=== PATIENT | male | born 1960 | race Caucasian/White ===

== ENCOUNTER → 2018-07-19 08:09 | Outpatient (CLI) | payer OTHER ==
[~2018-07-19] VITALS: Ht 182.9 cm; Wt 75.0 kg
--- NOTE | ~2018-07-19 | HEMODYNAMI ---
PATIENT:LOREN HOGUE MEDICAL RECORD: [id number] : 64 LOCATION:[facility] ADMISSION DATE: 07/19/18 Generatedon:07/19/201810:44 Patient name: LOREN HOGUE Patient #: [id number] SSN: : 1960 Date of study: 07/19/2018 Page: Of Hemodynamic Procedure Report Patient Data Patient Demographics Procedure consent was obtained First Name: LOREN Gender: Male Last Name: LENNIE : 1960 Patient #: [id number] Age: 57 year(s) Race: Unknown Additional ID: [id number] Contact details Address: [address] [place] [address] State: [place] City: [place] Zip code: [address] Past Medical History Allergies: No known allergies Admission Admission Data Admission Date: 07/19/2018 Admission Time: 8:09 Height (in.): 6 BSA: 0.32 (m2) Height (cm.): 15.24 BMI: 3241.93 (kg/m2) Weight (lbs.): 166 Weight (kg.): 75.3 Lab Results Lab Result Date: 07/19/2018 Lab Result Time: 0:00 Biochemistry Name Units Result Min Max BUN mg/dl 10 --(-*--)-- 7 18 Creatinine mg/dl 0.9 --(-*--)-- 0.6 1.3 CBC Name Units Result Min Max Hemoglobin g/dl 13 -*(----)-- 13.5 17.5 Procedure Procedure Types Cath Procedure Diagnostic Procedure LHC LHC w/Coronaries FFR/IVUS Intra-Coronary IVUS Initial Sedation Charges Moderate Sedation up to 15 minutes PCI Procedure Coronary Stent Coronary Stent Initial Procedure Description Procedure Date Procedure Date: 07/19/2018 Procedure Start Time: 10:21 Procedure End Time: 10:36 Procedure Staff Name Function Suri Elizondo RT Scrub Torsten Oglesby MD Performing Physician Jakob Mueller RT Housekeeping Attendant Samuel Morrison RN Nurse Amada Bravo RT Monitor Procedure Data Cath Procedure Fluoroscopy Diagnostic fluoroscopy Total fluoroscopy Time: 3.6 time: 3.6 min min Diagnostic fluoroscopy Total fluoroscopy dose: 335 dose: 335 mGy mGy Contrast Material Contrast Material Type Amount (ml) Isovue 300 102 Entry Location Entry Primary Successful Side Size Upsize Upsize Entry Closure Succes sful Closure Location (Fr) 1 (Fr) 2 (Fr) Remarks Device Remarks Femoral Right 5 Fr 6 Fr Exoseal artery Short Estimated blood loss: 10 ml Diagnostic catheters Device Type Used For End Catheter Placement MULTIPACK Pigtail 5 Fr Procedure catheter MULTIPACK JL 4.0 5Fr Procedure catheter MULTIPACK 3DRC 5Fr Procedure catheter Procedure Complications No complications Procedure Medications Medication Administration Route Dosage 0.9% NaCl I.V. 100 ml/hr Oxygen etCO2 Nasal cannula 2 l/min Heparin Flush Bag added to field 2 bags (1000units/500ml NS) Lidocaine 2% added to field 20 Benadryl I.V. 50 mg Versed I.V. 2 mg Fentanyl I.V. 100 mcg Versed I.V. 1 mg Versed I.V. 1 mg Heparin Bolus I.V. 4000 units Integrilin (Bolus I.V. 6.8 ml 2mg/ml) Integrilin (Bolus wasted 3.2 ml 2mg/ml) Plavix P.O. 600 mg Hemodynamics Rest BSA: 0.32 (m2) HGB: 13 (g/dl) O2 Consumption: Estimated: 39.33 (ml/min) O2 Consu mption indexed: Estimated:122.91 (ml/min/m) Heart Rate: 82 (bpm) Snapshots Pre Cath Intra NCS Post Cath Vital Signs Time Heart Resp SPO2 etCO2 NIBP (mmHg) Rhythm Pain Sedation Rate (ipm) (%) (mmHg) Status Level (bpm) 10:10:08 81 22 97 0 176/100(138) NSR 0 (11) 10(A) , No pain 10:14:57 77 14 99 34.5 160/97(139) NSR 0 (11) 10(A) , No pain 10:19:43 76 18 98 38.3 168/98(128) NSR 0 (11) 10(A) , No pain 10:24:32 82 14 33 173/90(137) NSR 0 (11) 10(A) , No pain 10:29:19 82 21 97 35.3 169/93(134) NSR 0 (11) 9(A) , No pain 10:34:06 83 16 97 15 164/99(139) NSR 0 (11) 10(A) , No pain Medications Time Medication Route Dose Verified Delivered Reason Notes Effectiveness by by 10:12:13 0.9% NaCl I.V. 100 Samuel Samuel Per physician ml/hr Prince Morrison RN RN 10:12:23 Oxygen etCO2 2 Samuel Samuel Per physician Nasal l/min Prince Morrison cannula RN RN 10:12:33 Heparin Flush added 2 Samuel Samuel used for Bag to bags Prince Morrison procedure (1000units/500ml field RN RN NS) 10:12:43 Lidocaine 2% added 20ml Samuel Samuel for local to vial Prince Morrison anesthetic RN RN 10:13:07 Benadryl I.V. 50 mg Samuel Samuel Per physician Prince Morrison RN RN 10:15:33 Versed I.V. 2 mg Samuel Samuel for sedation Prince Morrison RN RN 10:15:41 Fentanyl I.V. 100 Samuel Samuel for sedation mcg Prince Morrison RN RN 10:20:04 Versed I.V. 1 mg Samuel Samuel for sedation Prince Morrison RN RN 10:22:05 Versed I.V. 1 mg Samuel Samuel for sedation Prince Morrison RN RN 10:31:02 Heparin Bolus I.V. 4000 Samuel Samuel for units Prince Morrison anticoagulation RN RN 10:31:37 Integrilin I.V. 6.8 Samuel Samuel for (Bolus 2mg/ml) ml Prince Morrison antiplatelet RN RN therapy 10:33:49 Integrilin wasted 3.2 Samuel Samuel to sharp's (Bolus 2mg/ml) ml Prince Morrison RN RN 10:35:30 Plavix P.O. 600 Samuel Samuel for mg Prince Morrison antiplatelet RN RN therapy Procedure Log Time Note 9:57:32 Jakob MIGUEL(R) sent for patient. Start room use. 9:57:33 Time tracking: Regular hours (M-F 7:00 - 5:00) 9:57:37 Plan of Care:Hemodynamics will remain stable., Cardiac rhythm will remain stable., Comfort level will be maintained., Respiratory function will remain adequate., Patient/ family verbilizes understanding of procedure., Procedure tolerated without complication., Recovers from procedure without complications.. 9:59:52 Signed procedure consent form obtained from patient. 10:00:16 H&P Date Dictated: 06/22/2018 Within 30 days and on chart., H&P Addendum completed by physician on day of procedure. (MUST COMPLETE FOR ALL OUTPATIENTS). 10:00:22 Patient allergic to No known allergies 10:00:26 Patient Height : 6 inches 10:00:32 Patient Weight : 166 lbs 10::59 Lab Result : Hemoglobin 13 g/dl 10::59 Lab Result : Creatinine 0.9 mg/dl 10::59 Lab Result : BUN 10 mg/dl 10:03:33 Patient received from Pre/Post Procedure Room to CCL 1 Alert and oriented. Tansferred to table in Supine position. 10:03:36 Warm blankets applied, and radha hugger turned on for patient comfort. 10:03:37 Correct patient and procedure confirmed by team. 10:03:38 ECG and BP/O2 sat monitors applied to patient. 10:09:09 Vital chart was started 10:09:12 Full Disclosure recording started 10:12:13 0.9% NaCl 100 ml/hr I.V. was administered by Samuel Morrison RN; Per physician; 10:12:23 Oxygen 2 l/min etCO2 Nasal cannula was administered by Samuel Morrison RN; Per physician; 10:12:33 Heparin Flush Bag (1000units/500ml NS) 2 bags added to field was administered by Samuel Morrison RN; used for procedure; 10:12:43 Lidocaine 2% 20ml vial added to field was administered by Samuel Morrison RN; for local anesthetic; 10:13:07 Benadryl 50 mg I.V. was administered by Samuel Morrison RN; Per physician; 10:14:19 Baseline sample Acquired. 10:14:23 Rhythm: sinus rhythm 10:14:26 Pre-procedure instructions explained to patient. 10:14:27 Pre-op teaching completed and patient verbalized understanding. 10:14:29 Family in patients room. 10:14:31 Patient NPO since Midnight. 10:14:32 Is the patient allergic to Iodine/contrast media? No. 10:14:34 Is patient on blood thinner?No 10:14:35 Patient diabetic? No. 10:14:38 Previous problem with sedation/anesthesia? No ? 10:14:39 Snore? Yes 10:14:40 Sleep apnea? No 10:14:42 Opens mouth fully? Yes 10:14:43 Deviated septum? No 10:14:44 Sticks out tongue? Yes 10:14:54 Airway obstruction? Yes ASTHMA A KID 10:14:57 Dentures? No ? 10:14:59 Pre procedure: right dorsailis pedis pulse 2+ Normal; easily identifiable; not easily obliterated 10:15:03 Patient pain scale 0/10 ?. 10:15:06 IV patent on arrival in left hand with 0.9% NaCl at [facility]. 10:15:10 Lab results completed and on chart. 10:15:12 Right groin area was prepped with chlora-prep and draped in sterile fashion 10:15:13 Sharps counted by scrub and verified by R.N. 10:15:13 Alarms reviewed by R. N. 10:15:16 --------ALL STOP TIME OUT------ 10:15:17 Final Timeout: patient, procedure, and site verified with staff and physician. All members of the team are in agreement. 10:15:18 Right groin site verified by team. 10:15:23 Physical assessment completed. ASA score P 2 - A patient with mild systemic disease as per Torsten Oglesby MD. 10:15:26 Sedation plan: IV Moderate Sedation Medication:Versed, Fentanyl 10:15:33 Versed 2 mg I.V. was administered by Samuel Morrison RN; for sedation; 10:15:41 Fentanyl 100 mcg I.V. was administered by Samuel Morrison RN; for sedation; 10:16:11 Use device set Femoral Dx 10:16:12 ACIST Syringe (54970) opened to sterile field. 10:16:13 Bag Decanter () opened to sterile field. 10:16:14 ACIST Hand Control (16936) opened to sterile field. 10:16:15 ACIST Manifold (20878) opened to sterile field. 10:16:16 Medline Cath Pack ([id number]) opened to sterile field. 10:16:16 Tegaderm 4 x 4 (1626W) opened to sterile field. 10:16:17 DIAGNOSTIC WIRE .035 260cm J wire (794854) opened to sterile field. 10:16:18 DIAGNOSTIC Multipack 5Fr catheter set (FL2167) opened to sterile field. 10:16:19 SHEATH Prelude 5Fr 0.035 (XDQ-2T-67-035) opened to sterile field. 10:19:01 Zero performed for pressure channel P1 10:20:04 Versed 1 mg I.V. was administered by Samuel Morrison RN; for sedation; 10:20:16 Zero performed for pressure channel P1 10:21:37 Procedure started. 10:21:43 Local anesthetic to right femoral artery with Lidocaine 2% by Torsten Oglesby MD.INITIAL ACCESS ONLY 10:22:05 Versed 1 mg I.V. was administered by Samuel Morrison RN; for sedation; 10:22:26 A 5 Fr sheath was inserted into the Right Femoral artery 10::43 A MULTIPACK Pigtail 5 Fr catheter was advanced over the wire and used for Procedure. 10:23:24 LV gram done using LOW 10:23:27 Injector settings: Ml/sec: 10, Volume: 20, 10:23:31 EF : 60 % 10:23:32 Catheter removed. 10:24:05 A MULTIPACK JL 4.0 5Fr catheter was advanced over the wire and used for Procedure. 10:24:36 LCA angiography performed. 10:24:58 Catheter removed. 10:25:04 A MULTIPACK 3DRC 5Fr catheter was advanced over the wire and used for Procedure. 10:25:55 RCA angiography performed. 10:26:01 Catheter removed. 10:26:06 SHEATH 6FR [place] (PVX214) opened to sterile field. 10:26:14 INFLATOR Merit BasixCompak (ZM4243) opened to sterile field. 10:26:26 CHOICE PT Extra Support 182cm wire ([id number]) opened to sterile field. 10:26:55 Sheath upsized to a 6 Fr Short. 10:27:34 GUIDE 6FR XBLAD 3.5 catheter ([id number]) opened to sterile field. 10:27:44 6 Fr XBLAD 3.5 guide catheter was inserted over the wire 10:28:14 CHOICE ES 182 wire advanced. 10:28:40 Tiger [place] IVUS Catheter (88885L) opened to sterile field. 10:28:49 Wire advanced across lesion. 10:29:30 IVUS catheter advanced over wire. 10:29:32 IVUS pass to LAD lesion performed. 10:30:07 IVUS catheter removed over wire. 10:31:02 Heparin Bolus 4000 units I.V. was administered by Samuel Morrison RN; for anticoagulation; 10:31:37 Integrilin (Bolus 2mg/ml) 6.8 ml I.V. was administered by Samuel Morrison RN; for antiplatelet therapy; 10:31:53 Place stent Inflation Number: 1 A INTEGRITY RX 3.5 x 26 stent ([id number]) was prepped and advanced across the Mid LAD. The stent was deployed at 15 ADAM for 0:10 (min:sec). 10:32:44 Stent catheter was removed intact over wire. 10:32:45 Wire removed. 10:32:46 Guide catheter removed. 10:32:52 EXOSEAL 6Fr (EX600) opened to sterile field. 10:33:01 Sheath removed intact; hemostasis achieved with Exoseal to the Right Femoral artery. 10:33:05 Procedure ended.(Physican Out) 10:33:24 Fluoroscopy time 03.60 minutes. 10:33:28 Fluoroscopy dose: 335 mGy 10:33:28 Flurop Dose total: 335 10:33:32 Contrast amount:Isovue 300 102ml. 10:33:33 Sharps counted by scrub and verified by R.N. 10:33:35 Post-op/insertion site Right Femoral artery dressed using a 4 x 4 and Tegaderm. 10:33:43 Post right femoral artery:stable, soft, clean and dry 10:33:49 Integrilin (Bolus 2mg/ml) 3.2 ml wasted was administered by Samuel Morrison RN; to sharp's; 10:34:46 Post-procedure physical assessment completed. ASA score P 2 - A patient with mild systemic disease as per Torsten Oglesby MD. 10:34:50 Post procedure rhythm: sinus rhythm 10:34:51 Estimated blood loss: 10 ml 10:34:53 Patient needs reinforcement of post procedure teaching. 10:34:53 Post procedure instruction explained to patient.Patient verbalizes understanding. 10:35:30 Plavix 600 mg P.O. was administered by Samuel Morrison RN; for antiplatelet therapy; 10:35:52 Procedure type changed to Cath procedure, Diagnostic procedure, LHC, C w/Coronaries, FFR/IVUS, Intra-Coronary IVUS Initial, Sedation Charges, Moderate Sedation up to 15 minutes, PCI procedure, Coronary Stent, Coronary Stent Initial 10:36:18 Procedure and supply charges have been captured, reviewed, submitted and are correct. 10:36:21 Procedure Complication : No complications 10:36:40 Vital chart was stopped 10:36:41 See physician's report for complete and final results. 10:36:42 Report given to Pre/Post Procedure Room. 10:36:46 Patient transfered to Pre/Post Procedure Room with Bed. 10:36:48 Full Disclosure recording stopped 10:36:48 Procedure ended. 10:36:50 End room use (Document Last) 10:43:00 FEMSTOP Gold ([id number]) opened to sterile field. 10:43:27 Femstop placed over the right femoral artery at 190 mmHg. Hemostasis achieved. Intervention Summary Intervention Notes Time ActionType Lesion and Equipment Action# Pressure Duration Attributes Used 10:31:53 Place stent Mid LAD INTEGRITY RX 1 15 00:10 3.5 x 26 stent ([id number]) Device Usage Item Name Manufacture Quantity Catalog Number Hospital Part Current M inimal Lot# / Charge Number Stock Stock Serial# Code ACIST Syringe Acist 1 80056 912060 250807 895156 2 0 (77979) [employer] Inc Bag Decanter Microtek 1 2001S 016577 76131 441751 5 () Medical Inc. ACIST Hand Acist 1 95161 109406 653662 202322 5 Control (72200) [employer] Inc ACIST Manifold Acist 1 42183 775607 165692 613695 5 (84253) Medical [employer] Inc Tegaderm 4 x 4 3M 1 1626W 911357 912400 090782 5 (1626W) Medline Cath Cardinal 1 [id number] 880596 43811 107926 5 Rollerwall [facility] ([id number]) DIAGNOSTIC WIRE St Tim 1 101084 695055 152290 467505 3 0 .035 260cm J wire (505590) DIAGNOSTIC Cardinal 1 CP2842 910671 81888 383987 3 0 Multipack 5Fr Health catheter set (JX7499) SHEATH Prelude Merit 1 [id number]-9F-46-035 237840 694676 979490 5 5Fr 0.035 Medical ([id number]-4S-02-035) MULTIPACK Cardinal 1 015698 5 Pigtail 5 Fr Health catheter MULTIPACK JL Cardinal 1 396065 5 4.0 5Fr Health catheter MULTIPACK 3DRC Cardinal 1 526410 5 5Fr catheter Health SHEATH 6FR Terumo 1 CMC196 750353 559199 257100 4 0 [place] (UQR543) INFLATOR Merit Merit 1 KK7726 303906 623851 323890 1 5 BasixRADEUM Medical (SZ3164) CHOICE PT Extra [place] 1 [id number] 549709 805914 931479 5 Support 182cm Scientific wire ([id number]) GUIDE 6FR XBLAD Cardinal 1 [id number] 382170 407089 047546 1 0 3.5 catheter Health (91659844) Tiger Tiger 1 20471J 713792 278939 868094 8 [place] IVUS Catheter (40796B) INTEGRITY RX Medtronic 1 [id number] 637172 252246 416115 5 [id number] 3.5 x 26 stent ([id number]) EXOSEAL 6Fr Cardinal 1 EX600 158121 913881 072550 1 0 (EX600) Health FEMSTOP Gold St Tim 1 K71681 901942 986846 943676 5 ([id number]) Signature Audit [place] Stage Time Signature Unsigned Intra-Procedure 07/19/2018 Amada Bravo 10:39:47 AM RT(R) RT(R) 07/19/2018 10:42:52 AM Intra-Procedure 07/19/2018 Amada Bravo 10:44:01 AM RT(R) Signatures Monitor : Amada Bravo Signature : RT Date : Time : [id number] [place] [address]
--- NOTE | ~2018-07-19 | OP ---
PATIENT NAME: LOREN HOGUE MEDICAL RECORD: [id number] :64 LOCATION:[facility] ADMISSION DATE: SURGEON: DWIGHT KAUFMAN MD DATE OF OPERATION: 07/19/2018 DATE OF SERVICE: 07/19/2018 PROCEDURES: 1. PTCA stent LAD. 2. Left heart catheterization. 3. Selective coronary angiography. 4. Left ventriculogram. 5. Intravascular ultrasound. INDICATION: Angina and coronary artery disease. PROCEDURE IN DETAIL: After informed consent was obtained and after a detailed description of the risks, benefits as well as alternative therapies, the patient elected to proceed with angiogram and angioplasty. The right femoral area was prepped and draped in normal sterile fashion. Right femoral artery was cannulated via modified Seldinger technique with placement of 6-Japanese sheath. All catheters exchanged through this sheath. FINDINGS: The left ventriculogram was performed in a standard 30-degree LOW view, reveals good cardiac wall motion throughout all segments. Overall ejection fraction estimated 60%. SELECTIVE CORONARY ANGIOGRAPHY: 1. Left main is with no significant angiographic disease. 2. Left anterior descending has areas of 70% greater stenosis throughout the proximal vessel confirmed by intravascular ultrasound. 3. Left circumflex has mild irregularities, but no flow-limiting stenosis. 4. Right coronary has mild irregularities, but no flow-limiting stenosis. PTCA STENT OF THE LAD: The stent used was a 3.5 x 26 mm Integrity. Result was 0% residual stenosis. OVERALL IMPRESSION: Successful percutaneous transluminal coronary angioplasty stent of the left anterior descending going from greater than 70% initial stenosis to 0% residual. TRANSINT:[id number] Voice Confirmation ID: [id number] DOCUMENT ID: [id number] DWIGHT KAUFMAN MD at 1722 CC: [id number] DICTATION DATE: 07/19/18 1037 OVERHEAD FOREMAN: 07/19/18 1049 [address] [place] [address]
[~2018-07-19 08:09] MED LIST: BAYER CHEWABLE81 MG PO; LEVOXYL200 MCG PO; PLAVIX75 MG PO
[2018-07-19 09:17] VITALS: BP 164/91; Ht 182.9 cm; Wt 75.0 kg
[2018-07-19 09:26] LABS: BASOPHILS 0.3 % (0-2); EOSINOPHILS 2.9 % (0-7); HEMATOCRIT 38.7 % (42.0-54.0); IMMATURE GRANULOCYTES 0.4 % (0-5); LYMPHOCYTES 19.7 % (15-50); MCH 29.5 pg (26.0-34.0); MCHC 33.6 g/dL (31.0-37.0); MEAN PLATELET VOLUME 8.8 fL (7.4-10.4); MONOCYTES 7.3 % (2-11); NEUTROPHILS 69.4 % (40-80); PLATELET COUNT 205 10x3/uL (130-400); RDW 14.1 % (11.5-14.5); WBC 7.8 10x3/uL (4.8-10.8)
[2018-07-19 09:41] LABS: CALC OSMOLALITY 275 mosm/kg (275-300); CALCIUM 8.3 mg/dL (8.5-10.1); CHLORIDE - SERUM 104 mmol/L (98-107); CREATININE - SERUM 0.9 mg/dL (0.6-1.3); GLUCOSE 111 mg/dL (74-106); POTASSIUM - SERUM 3.9 mmol/L (3.5-5.1); SODIUM 138 mmol/L (136-145); UREA NITROGEN 10 mg/dL (7-18); eGFR NON AFRICAN AMERICAN > 90 mL/min (90-120)
== END | disposition home or self-care (01) ==
LOC: D.CATH 08:09
PROVIDERS: Internal Medicine Interventional Cardiology
DX: I25.119 Atherosclerotic heart disease of native coronary artery with unspecified angina pectoris (principal); Z01.812 Encounter for preprocedural laboratory examination

== ENCOUNTER 2018-08-30 07:48 | Outpatient (CLI) | payer OTHER ==
[~2018-08-30] VITALS: Ht 182.9 cm; Wt 75.0 kg
--- NOTE | ~2018-08-30 | HEMODYNAMI ---
PATIENT:LOREN HOGUE MEDICAL RECORD: [id number] : 64 LOCATION:[facility] ADMISSION DATE: 08/30/18 Generatedon:08/30/201810:19 Patient name: LOREN HOGUE Patient #: [id number] SSN: : 1960 Date of study: 08/30/2018 Page: Of Hemodynamic Procedure Report Patient Data Patient Demographics Procedure consent was obtained First Name: LOREN Gender: Male Last Name: LENNIE : 1960 Patient #: [id number] Age: 57 year(s) Race: Unknown Additional ID: [id number] Contact details [address]: [address] [place] [address] State: [place] City: [place] Zip code: [address] Past Medical History Allergies: No known allergies Admission Admission Data Admission Date: 08/30/2018 Admission Time: 7:48 Procedure Procedure Types Cath Procedure Diagnostic Procedure LHC LHC w/Coronaries FFR/IVUS Intra-Coronary IVUS Initial Sedation Charges Moderate Sedation up to 30 minutes PCI Procedure Coronary Stent Coronary Stent Initial x2 Procedure Description Procedure Date Procedure Date: 08/30/2018 Procedure Start Time: 9:37 Procedure End Time: 10:12 Procedure Staff Name Function Torsten Oglesby MD Performing Physician Amada Bravo RT Scrub Estella Pham RN Nurse Kya Leung RN Veterinary Assistant Technician Jakob Mueller RT Monitor Procedure Data Cath Procedure Fluoroscopy Diagnostic fluoroscopy Total fluoroscopy Time: time: 12.5 min 12.5 min Diagnostic fluoroscopy Total fluoroscopy dose: 860 dose: 860 mGy mGy Contrast Material Contrast Material Type Amount (ml) Isovue 300 161 Entry Location Entry Primary Successful Side Size Upsize Upsize Entry Closure Succes sful Closure Location (Fr) 1 (Fr) 2 (Fr) Remarks Device Remarks Femoral Right 5 Fr 6 Fr Exoseal artery Short Estimated blood loss: 10 ml Diagnostic catheters Device Type Used For End Catheter Placement MULTIPACK Pigtail 5 Fr Procedure catheter MULTIPACK JL 4.0 5Fr Procedure catheter MULTIPACK 3DRC 5Fr Procedure catheter Procedure Complications No complications Procedure Medications Medication Administration Route Dosage 0.9% NaCl I.V. 100 ml/hr Oxygen etCO2 Nasal cannula 2 l/min Lidocaine 2% added to field 20 Heparin Flush Bag added to field 2 bags (1000units/500ml NS) Plavix P.O. 75 mg Versed I.V. 2 mg Fentanyl I.V. 100 mcg Versed I.V. 2 mg Fentanyl I.V. 100 mcg Versed I.V. 1 mg Heparin Bolus I.V. 4000 units Versed I.V. 1 mg Versed I.V. 2 mg Fentanyl I.V. 100 mcg Heparin Bolus I.V. 3000 units Lopressor I.V. 5 mg Nitro Viroqua S.L. 1200 mcg Hemodynamics Rest Heart Rate: 77 (bpm) Pressure Samples Time Site Value (mmHg) Purpose Heart Use Rate(bpm) 9:38 LV 140/18,40 Snapshot 80 Snapshots Pre Cath Intra NCS Post Cath Vital Signs Time Heart Resp SPO2 etCO2 NIBP (mmHg) Rhythm Pain Sedation Rate (ipm) (%) (mmHg) Status Level (bpm) 9:13:55 69 16 99 29.9 184/97(145) NSR 0 (11) 10(A) , No pain 9:18:17 68 15 100 31.4 172/96(122) NSR 0 (11) 10(A) , No pain 9:22:33 82 12 99 34.4 155/92(131) NSR 0 (11) 10(A) , No pain 9:26:55 73 11 98 35.9 149/85(138) NSR 0 (11) 10(A) , No pain 9:31:09 72 10 98 37.4 154/93(120) NSR 0 (11) 10(A) , No pain 9:35:25 72 10 98 34.4 159/95(145) NSR 0 (11) 10(A) , No pain 9:39:41 81 11 99 31.4 154/88(112) NSR 0 (11) 10(A) , No pain 9:43:55 82 11 99 38.1 156/95(114) NSR 0 (11) 10(A) , No pain 9:48:01 86 20 99 40.4 145/95(126) NSR 0 (11) 10(A) , No pain 9:53:19 89 13 98 30.6 192/113(152) NSR 0 (11) 10(A) , No pain 9:57:39 89 13 99 14.2 204/116(159) NSR 0 (11) 10(A) , No pain 10:02:17 95 23 97 38.9 198/118(155) NSR 0 (11) 10(A) , No pain 10:07:47 90 12 98 40.4 184/109(147) NSR 0 (11) 10(A) , No pain 10:12:03 79 13 97 38.1 154/92(132) NSR 0 (11) 10(A) , No pain Medications Time Medication Route Dose Verified Delivered Reason Notes Effectiveness by by 9:09:32 0.9% NaCl I.V. 100 Torsten Estella used for ml/hr Mendel Pham job tracer 9:09:39 Oxygen etCO2 2 Torsten Estella used for Nasal l/min Mendel Pham procedure cannula RN 9:09:46 Lidocaine 2% added 20ml Torsten Torsten for local to vial Mendel Oglesby MD anesthetic field 9:09:51 Heparin Flush added 2 Torsten Torsten used for Bag to bags Mendel Oglesby MD procedure (1000units/500ml field NS) 9:27:36 Plavix P.O. 75 mg Torsten Torsten for Mendel Oglesby MD antiplatelet therapy 9:33:08 Versed I.V. 2 mg Torsten Estella for sedation Mendel Pham RN 9:33:16 Fentanyl I.V. 100 Torsten Estella for sedation mcg Mendel Pham RN 9:40:50 Versed I.V. 2 mg Torsten Estella for sedation Mendel Pham RN 9:41:06 Fentanyl I.V. 100 Torsten Estella for sedation mcg Mendel Pham RN 9:45:46 Versed I.V. 1 mg Torsten Estella for sedation Mendel Pham RN 9:48:49 Heparin Bolus I.V. 4000 Torsten Estella for units Mendel oden RN 9:53:05 Versed I.V. 1 mg Torsten Estella for sedation Mendel Pham RN 10:00:32 Fentanyl I.V. 100 Torsten Estella for sedation mcg Mendel Pham RN 10:00:41 Heparin Bolus I.V. 3000 Torsten Soria for units Mendel Pham anticoagulation RN 10:02:27 Versed I.V. 2 mg Torsten Soria for sedation Mendel Pham RN 10:05:00 Lopressor I.V. 5 mg Torsten Soria Per physician Mendel Pham RN 10:10:14 Nitro Viroqua S.L. 1200 Torsten Soria Per physician [facility] Mendel Pham RN Procedure Log Time Note 9:05:52 Kya Leung RN sent for patient. Start room use. 9:05:53 Time tracking: Regular hours (M-F 7:00 - 5:00) 9:05:57 Plan of Care:Hemodynamics will remain stable., Cardiac rhythm will remain stable., Comfort level will be maintained., Respiratory function will remain adequate., Patient/ family verbilizes understanding of procedure., Procedure tolerated without complication., Recovers from procedure without complications.. 9:06:04 H&P Date Dictated: 08/28/2018 Within 30 days and on chart., H&P Addendum completed by physician on day of procedure. (MUST COMPLETE FOR ALL OUTPATIENTS). 9:06:11 Patient allergic to No known allergies 9:08:23 Patient received from Pre/Post Procedure Room to CCL 1 Alert and oriented. Tansferred to table in Supine position. 9:08:24 Warm blankets applied, and radha hugger turned on for patient comfort. 9:08:25 Correct patient and procedure confirmed by team. 9:08:26 Signed procedure consent form obtained from patient. 9:08:27 ECG and BP/O2 sat monitors applied to patient. 9:08:27 Full Disclosure recording started 9:09:32 0.9% NaCl 100 ml/hr I.V. was administered by Estella Pham RN; used for procedure; 9:09:39 Oxygen 2 l/min etCO2 Nasal cannula was administered by Estella Pham RN; used for procedure; 9:09:46 Lidocaine 2% 20ml vial added to field was administered by Torsten Oglesby MD; for local anesthetic; 9:09:51 Heparin Flush Bag (1000units/500ml NS) 2 bags added to field was administered by Torsten Oglesby MD; used for procedure; 9:12:39 Vital chart was started 9:17:40 Rhythm: sinus rhythm 9:17:44 Pre-procedure instructions explained to patient. 9:17:44 Pre-op teaching completed and patient verbalized understanding. 9:17:46 Family in patients room. 9:17:48 Patient NPO since Midnight. 9:17:50 Is the patient allergic to Iodine/contrast media? No. 9:17:53 Is patient on blood thinner?Yes 9:17:57 ACC The patient was administered the following blood thiners within the last 24 hours: ACCAspirin, ACCPlavix 9:17:59 Patient diabetic? No. 9:18:03 Previous problem with sedation/anesthesia? No ? 9:18:04 Snore? Yes 9:18:05 Sleep apnea? No 9:18:06 Deviated septum? No 9:18:07 Opens mouth fully? Yes 9:18:08 Sticks out tongue? Yes 9:18:12 Airway obstruction? Yes Asthma 9:18:15 Dentures? No ? 9:18:19 Pre procedure: right dorsailis pedis pulse 2+ Normal; easily identifiable; not easily obliterated 9:18:21 Patient pain scale 0/10 ?. 9:18:27 IV patent on arrival in left hand with 0.9% NaCl at O. 9:18:29 Lab results completed and on chart. 9:18:35 Right groin area was prepped with chlora-prep and draped in sterile fashion 9:18:36 Alarms reviewed by R. N. 9:18:36 Sharps counted by scrub and verified by R.N. 9:19:00 Use device set Femoral Dx 9:19:01 ACIST Syringe (46464) opened to sterile field. 9:19:02 Bag Decanter (2002) opened to sterile field. 9:19:02 Medline Cath Pack ([id number]) opened to sterile field. 9:19:03 DIAGNOSTIC WIRE .035 260cm J wire (093203) opened to sterile field. 9:19:04 ACIST Hand Control (75058) opened to sterile field. 9:19:05 ACIST Manifold (46579) opened to sterile field. 9:19:05 DIAGNOSTIC Multipack 5Fr catheter set (QH9733) opened to sterile field. 9:19:06 Tegaderm 4 x 4 (1626W) opened to sterile field. 9:19:07 SHEATH Prelude 5Fr 0.035 (HLW-1S-32-035) opened to sterile field. 9:21:18 Baseline sample Acquired. 9:22:55 Physician paged 9:26:12 Zero performed for pressure channel P1 9:27:36 Plavix 75 mg P.O. was administered by Torsten Oglesby MD; for antiplatelet therapy; 9:: Physician arrived 9:: --------ALL STOP TIME OUT------ :: Final Timeout: patient, procedure, and site verified with staff and physician. All members of the team are in agreement. 9:32:30 Right groin site verified by team. 9:32:35 Physical assessment completed. ASA score P 2 - A patient with mild systemic disease as per Torsten Oglesby MD. 9:32:41 Sedation plan: IV Moderate Sedation Medication:Versed, Fentanyl 9:33:08 Versed 2 mg I.V. was administered by Estella Pham RN; for sedation; 9:33:16 Fentanyl 100 mcg I.V. was administered by Estella Pham RN; for sedation; 9:37:00 Procedure started. 9:37:03 Local anesthetic to right femoral artery with Lidocaine 2% by Torsten Oglesby MD.INITIAL ACCESS ONLY 9:37:11 A 5 Fr sheath was inserted into the Right Femoral artery 9:38:22 A MULTIPACK Pigtail 5 Fr catheter was advanced over the wire and used for Procedure. 9:38:46 LV gram done using LOW 9:38:51 Injector settings: Ml/sec: 10, Volume: 20, 9:38:56 EF : 60 % 9:38:57 Catheter exchanged over wire. 9:39:00 A MULTIPACK JL 4.0 5Fr catheter was advanced over the wire and used for Procedure. 9:39:33 LCA angiography performed. 9:40:50 Versed 2 mg I.V. was administered by Estella Pham RN; for sedation; 9:40:58 Catheter exchanged over wire. 9:41:02 A MULTIPACK 3DRC 5Fr catheter was advanced over the wire and used for Procedure. 9:41:04 RCA angiography performed. 9:41:06 Fentanyl 100 mcg I.V. was administered by Estella Pham RN; for sedation; 9:41:14 Bivalve [place] IVUS Catheter (96380R) opened to sterile field. 9:41:33 CHOICE PT Extra Support 182cm wire ([id number]) opened to sterile field. 9:41:34 INFLATOR Merit BasaudeliaCompak (EY8926) opened to sterile field. 9:41:35 SHEATH 6FR [place] (ZRV593) opened to sterile field. 9:41:44 Catheter removed. 9:41:50 Sheath upsized to a 6 Fr Short. 9:42:03 GUIDE 6FR XBLAD 3.5 catheter ([id number]) opened to sterile field. 9:42:06 6 Fr xblad 3.5 guide catheter was inserted over the wire 9:44:22 choice pt es wire advanced. 9:44:52 Wire advanced across lesion. 9:45:46 Versed 1 mg I.V. was administered by Estella Pham RN; for sedation; 9:47:58 IVUS catheter advanced over wire. 9:48:00 IVUS pass to LAD lesion performed. 9:48:01 IVUS catheter removed over wire. 9:48:48 Place stent Inflation Number: 1 A INTEGRITY RX 3.5 x 09 stent ([id number]) was prepped and advanced across the Prox LAD. The stent was deployed at 17 ADAM for 0:10 (min:sec). 9:48:49 Heparin Bolus 4000 units I.V. was administered by Estella Pham RN; for anticoagulation; 9:49:25 Stent catheter was removed intact over wire. 9:49:26 Wire removed. 9:49:58 Wire redirected to cx. 9:52:31 SuperCross Microcatheter 90 angle (5304) opened to sterile field. 9:52:58 Wire removed. 9:53:05 Versed 1 mg I.V. was administered by Estella Pham RN; for sedation; 9:53:08 CHOICE PT Extra Support J 300cm guide wire ([id number]) opened to sterile field. 10:00:22 choice pt es wire advanced. 10:00:26 super cross microctheter advanced. 10:00:32 Fentanyl 100 mcg I.V. was administered by Estella Pham RN; for sedation; 10:00:41 Heparin Bolus 3000 units I.V. was administered by Estella Pham RN; for anticoagulation; 10:02:18 Wire advanced across lesion. 10:02:27 Versed 2 mg I.V. was administered by Estella Pham RN; for sedation; 10:02:28 super cross removed over wire. 10:03:24 Inflate balloon Inflation number: 1 A EUPHORA 2.5 x 15 Balloon ([id number]) was prepped and advanced across the Prox CX, then inflated to 13 ADAM for 0:10 (min:sec). 10:03:32 Inflation number: 2 The EUPHORA 2.5 x 15 Balloon ([id number]) was reinflated across the Prox CX, to 13 ADAM for 0:10 (min:sec). 10:04:06 Balloon removed over the wire. 10:05:00 Lopressor 5 mg I.V. was administered by Estella Pham RN; Per physician; 10:06:20 Place stent Inflation Number: 3 A ROXANA RX 2.75 x 08 stent ([id number]) was prepped and advanced across the Prox CX. The stent was deployed at 11 ADAM for 0:10 (min:sec). 10:07:39 Stent catheter was removed intact over wire. 10:07:40 Wire removed. 10:07:40 Guide catheter removed. 10:07:46 EXOSEAL 6Fr (EX600) opened to sterile field. 10:07:55 Sheath removed intact; hemostasis achieved with Exoseal to the Right Femoral artery. 10:07:57 Procedure ended.(Physican Out) 10:10:14 Nitro Viroqua 1200 mcg S.L. was administered by Estella Pham RN; Per physician; 10:10:32 Fluoroscopy time 12.50 minutes. 10:10:36 Flurop Dose total: 860 10:10:36 Fluoroscopy dose: 860 mGy 10:10:40 Contrast amount:Isovue 300 161ml. 10:10:41 Sharps counted by scrub and verified by R.N. 10:10:42 Insertion/operative site no bleeding no hematoma. 10:10:46 Post-op/insertion site Right Femoral artery dressed using a 4 x 4 and Tegaderm. 10:10:49 Post right femoral artery:stable, soft, clean and dry 10:10:51 Post Procedure Pulses reassessed and unchanged 10:10:53 Post-procedure physical assessment completed. ASA score P 2 - A patient with mild systemic disease as per Torsten Oglesby MD. 10:10:55 Post procedure rhythm: unchanged. 10:10:58 Estimated blood loss: 10 ml 10:11:06 Post procedure instruction explained to patient.Patient verbalizes understanding. 10:11:07 Patient needs reinforcement of post procedure teaching. 10:11:46 Procedure type changed to Cath procedure, Diagnostic procedure, LHC, LHC w/Coronaries, FFR/IVUS, Intra-Coronary IVUS Initial, Sedation Charges, Moderate Sedation up to 30 minutes, PCI procedure, Coronary Stent, Coronary Stent Initial x2 10:12:37 Procedure and supply charges have been captured, reviewed, submitted and are correct. 10:12:40 Procedure Complication : No complications 10:12:42 Vital chart was stopped 10:12:43 See physician's report for complete and final results. 10:12:44 Report given to Pre/Post Procedure Room. 10:12:47 Patient transfered to Pre/Post Procedure Room with Stretcher. 10:12:48 Procedure ended. 10:12:48 Full Disclosure recording stopped 10:12:52 End room use (Document Last) Intervention Summary Intervention Notes Time ActionType Lesion and Equipment Used Action# Pressure Duration Attributes 9:48:48 Place stent Prox LAD INTEGRITY RX 1 17 00:10 3.5 x 09 stent ([id number]) 10:03:24 Inflate Prox CX EUPHORA 2.5 x 1 13 00:10 balloon 15 Balloon ([id number]) 10:03:32 Reinflate Prox CX EUPHORA 2.5 x 2 13 00:10 balloon 15 Balloon ([id number]) 10:06:20 Place stent Prox CX ROXANA RX 2.75 x 3 11 00:10 08 stent ([id number]) Device Usage Item Name Manufacture Quantity Catalog Number Hospital Part Current Minimal Lot# / Charge Number Stock Stock Serial# Code ACIST Syringe Acist 1 73792 899881 780609 265262 20 (09451) Medical Systems Inc Bag Decanter Microtek 1 282564 49245 315433 5 () Medical Inc. Medline Cath Medline 1 [id number] 404321 77725 077855 5 Pack ([id number]) DIAGNOSTIC WIRE St Tim 1 555745 900989 570049 694116 30 .035 260cm J wire (957378) ACIST Hand Acist 1 81613 340004 152612 180865 5 Control (23943) Medical Systems Inc ACIST Manifold Acist 1 45906 362173 799009 004698 5 (89753) Medical Systems Inc DIAGNOSTIC Cardinal 1 EM4912 417208 14758 514397 30 Multipack 5Fr Health catheter set ([id number]) Tegaderm 4 x 4 3M 1 1626W 466820 550763 642295 5 (1626W) SHEATH Prelude Merit 1 CQG-7Q-82-035 388052 945111 323151 5 5Fr 0.035 Medical (SAT-4U-18-035) MULTIPACK Cardinal 1 572440 5 Pigtail 5 Fr Health catheter MULTIPACK JL Cardinal 1 270602 5 4.0 5Fr Health catheter MULTIPACK 3DRC Cardinal 1 546467 5 5Fr catheter Health Bivalve Bivalve 1 77854S 135342 083911 563232 8 [place] IVUS Catheter (25902D) CHOICE PT Extra [place] 1 [id number] 716755 372265 237122 5 Support 182cm Scientific wire ([id number]) INFLATOR Merit Merit 1 NN9163 526207 168242 556642 15 BasX5 Group Medical (DG1750) SHEATH 6FR Terumo 1 UGO658 939570 038501 228689 40 [place] (DWO602) GUIDE 6FR XBLAD Cardinal 1 67092277 922407 472811 767755 10 3.5 catheter Health (13878079) INTEGRITY RX Medtronic 1 [id number] 690788 388444 777296 5 [id number] 3.5 x 09 stent ([id number]) SuperCross Vascular 1 5304 590163 032969 175776 5 Microcatheter Solutions 90 angle (5304) CHOICE PT Extra [place] 1 [id number] 673984 588280 612694 5 Support J 300cm Scientific guide wire ([id number]) EUPHORA 2.5 x Medtronic 1 [id number] 741566 607921 384605 5 [id number] 15 Balloon ([id number]) ROXANA RX 2.75 x Medtronic 1 [id number] 789017 7829105 831874 5 [id number] 08 stent ([id number]) EXOSEAL 6Fr Cardinal 1 EX600 821542 062367 273245 10 (EX600) Health Signature Audit [place] Stage Time Signature Unsigned Intra-Procedure 08/30/2018 Jakob Mueller 10:19:04 AM RT(R) Signatures Monitor : Jakob Mueller RT Signature : Date : Time : [id number] [place] [address]
--- NOTE | ~2018-08-30 | OP ---
PATIENT NAME: LOREN HOGUE MEDICAL RECORD: [id number] :64 LOCATION:D.CAT ADMISSION DATE: SURGEON: DWIGHT KAUFMAN MD DATE OF OPERATION: 08/30/2018 PROCEDURES: 1. PTCA stent LAD. 2. PTCA stent left circumflex. 3. Intravascular ultrasound of the LAD. 4. Intravascular ultrasound of left main. 5. Left heart catheterization. 6. Selective coronary angiography. 7. Left ventriculogram. INDICATION: Angina and coronary artery disease. PROCEDURE IN DETAIL: After informed consent was obtained and after a detailed description of risks, benefits as well as alternative therapies, the patient elected to proceed with angiogram and angioplasty. The right femoral area was prepped and draped in normal sterile fashion. Right femoral artery was cannulated via modified Seldinger technique with placement of 6-Kiswahili sheath. All catheters exchanged through this sheath. FINDINGS: The left ventriculogram was performed in standard 30-degree LOW view, reveals good cardiac wall motion throughout all segments. Overall ejection fraction estimated at 50%. SELECTIVE CORONARY ANGIOGRAPHY: 1. Left main has 67% stenosis confirmed by intravascular ultrasound. 2. Left anterior descending ostium has 80% stenosis confirmed by intravascular ultrasound. After this, the LAD has a previously placed stent that is widely patent. The remainder of the LAD has no significant angiographic disease. 3. Left circumflex has no significant disease. 4. Right coronary has no significant disease. PTCA STENT OF THE LEFT MAIN AND LAD: The stent used covering the lesion was a 3.5 x 9-mm Integrity, this caused plaque shift into the left circumflex. The left circumflex was then 90% stenosed. We are able to wire this and ballooned with a 2.5 balloon, stented with a 2.5 x 8 mm [place] stent. Result was 0% residual throughout. OVERALL IMPRESSION: Successful PTCA stent of the LAD and left main going from 80+ percent initial stenosis to 0% residual. TRANSINT:[id number] Voice Confirmation ID: [id number] DOCUMENT ID: [id number] DWIGHT KAUFMAN MD at 1816 CC: [id number] DICTATION DATE: 08/30/18 1033 DIRT SUPERVISOR: 08/30/18 1057 DEP CLI 08/30/18 [place] [address]
[2018-08-30 08:26] VITALS: BP 154/85; Ht 182.9 cm; Wt 75.0 kg
[2018-08-30 08:30] LABS: BASOPHILS 0.2 % (0-2); HEMATOCRIT 39.1 % (42.0-54.0); HEMOGLOBIN 12.9 g/dL (13.5-17.5); IMMATURE GRANULOCYTES 0.2 % (0-5); LYMPHOCYTES 19.9 % (15-50); MCH 29.1 pg (26.0-34.0); MCV 88.3 fL (80.0-100.0); MEAN PLATELET VOLUME 9.2 fL (7.4-10.4); MONOCYTES 10.8 % (2-11); NEUTROPHILS 63.9 % (40-80); PLATELET COUNT 217 10x3/uL (130-400); RBC 4.43 10x6/uL (4.20-6.10); RDW 13.8 % (11.5-14.5); WBC 5.2 10x3/uL (4.8-10.8)
[2018-08-30 08:38] LABS: CALC OSMOLALITY 279 mosm/kg (275-300); CALCIUM 8.5 mg/dL (8.5-10.1); CARBON DIOXIDE 29.3 mmol/L (21.0-32.0); CHLORIDE - SERUM 105 mmol/L (98-107); CREATININE - SERUM 0.9 mg/dL (0.6-1.3); GLUCOSE 110 mg/dL (74-106); POTASSIUM - SERUM 4.1 mmol/L (3.5-5.1); SODIUM 140 mmol/L (136-145); UREA NITROGEN 12 mg/dL (7-18); eGFR NON AFRICAN AMERICAN > 90 mL/min (90-120)
== END 2018-08-30 14:23 | disposition home or self-care (01) ==
LOC: D.CATH 07:48
PROVIDERS: Internal Medicine Interventional Cardiology
DX: I25.119 Atherosclerotic heart disease of native coronary artery with unspecified angina pectoris (principal); Z01.812 Encounter for preprocedural laboratory examination

== ENCOUNTER 2019-02-16 10:08 | Outpatient (CLI) | payer OTHER ==
[~2019-02-16] VITALS: Ht 182.9 cm; Wt 72.7 kg
--- NOTE | ~2019-02-16 | CN ---
PATIENT NAME:LOREN ESCOBAR MEDICAL RECORD: [id number] : 64 LOCATION:D.CAT ADMIT DATE: ACCOUNT: [id number] CONSULTING PHYSICIAN: DWIGHT KAUFMAN MD REFERRING PHYSICIAN: HILARY OVALLE MD DATE OF CONSULTATION: 02/16/2019 CARDIOLOGY CONSULTATION DATE OF SERVICE: 02/16/2018 ADMITTING DIAGNOSES: 1. Unstable angina. 2. Coronary artery disease. 3. Previous multivessel percutaneous transluminal coronary angioplasty stent. 4. Gastroesophageal reflux disease. HISTORY OF PRESENT ILLNESS: Mr. Escobar presents with increasing episodes of chest pain. Over the past 2 weeks, his chest pain has escalated to rest pain. It is just like that of his previous angina. Last cardiac intervention was last year. PHYSICAL EXAMINATION: GENERAL APPEARANCE: Well-nourished, well-developed, appears stated age. Level of distress, comfortable. PSYCHIATRIC: Mental status, alert, normal affect. Orientation, oriented to time, place and person. EYES: Lids and conjunctiva, noninjected. No discharge, no pallor. ENT: Lips, teeth, gums, normal dentition. Oropharynx, no cyanosis, no pallor. NECK: Carotid arteries, bilateral normal upstroke, no bruits, no thrills. JUGULAR VEINS: No jugular venous pressure or distention. CERVICAL LYMPH NODES: Nontender, nonenlarged. THYROID: Not enlarged. Nontender. No nodules. LUNGS: Respiratory effort, unlabored. CHEST: Normal curvature. No thoracic deformity. No chest wall tenderness. Percussion, resonant. Auscultation, clear. No wheezes, no rales, no rhonchi. CARDIOVASCULAR: Precordial exam, nondisplaced. No heaves or pericardial thrills. Rate and rhythm, regular. Heart sounds, normal S1, normal S2. No S3, no gallop, no rub. Systolic murmur, not heard. Diastolic murmur, not heard. EXTREMITIES: No cyanosis, no edema. Peripheral pulses, full and equal in all extremities, except as noted. No bruits appreciated. ABDOMEN: Soft, nondistended. Normal aorta. No bruit. Nontender. No masses. Liver, nontender, no hepatomegaly. Spleen, nontender, no splenomegaly. MUSCULOSKELETAL: No joint tenderness. No joint swelling. No erythema. NEUROLOGICAL: Normal gait, normal strength, normal tone. SKIN: Warm and dry. OVERALL IMPRESSION: Chest pain in a worsening fashion compatible with unstable angina. We will proceed with coronary angiography. Further care depends upon the findings of the angiography. TRANSINT:[id number] Voice Confirmation ID: [id number] DOCUMENT ID: [id number] CONSULT REPORT [id number] LOREN ESCOBAR JEFFREY MD CC: [id number] DICTATION DATE: 02/16/19 1447 MILK PICKUP DRIVER: 02/16/19 1532 PRE [facility] [address] [id number]
--- NOTE | ~2019-02-16 | HEMODYNAMI ---
PATIENT:LOREN HOGUE MEDICAL RECORD: [id number] : 64 LOCATION:[facility] ADMISSION DATE: 02/16/19 Generatedon:02/16/201915:24 Patient name: LOREN HOGUE Patient #: [id number] SSN: : 1960 Date of study: 02/16/2019 Page: Of Hemodynamic Procedure Report Patient Data Patient Demographics Procedure consent was obtained First Name: LOREN Gender: Male Last Name: LENNIE : 1960 Patient #: [id number] Age: 58 year(s) Race: Unknown Additional ID: [id number] Contact details [address]: [address] [place] [address] State: [place] City: [place] Zip code: [address] Past Medical History Allergies: No known allergies Admission Admission Data Admission Date: 02/16/2019 Admission Time: 14:35 Procedure Procedure Types Cath Procedure Diagnostic Procedure LHC LHC w/Coronaries Procedure Description Procedure Date Procedure Date: 02/16/2019 Procedure Start Time: 15:08 Procedure End Time: 15:20 Procedure Staff Name Function Dayday Evans RT Scrub Torsten Oglesby MD Performing Physician Samuel Morrison RN Nurse Jakob Mueller RT Monitor Procedure Data Cath Procedure Fluoroscopy Diagnostic fluoroscopy Total fluoroscopy Time: 0.8 time: 0.8 min min Diagnostic fluoroscopy Total fluoroscopy dose: 263 dose: 263 mGy mGy Contrast Material Contrast Material Type Amount (ml) Isovue 300 59 Entry Location Entry Primary Successful Side Size Upsize Upsize Entry Closure Succes sful Closure Location (Fr) 1 (Fr) 2 (Fr) Remarks Device Remarks Femoral Right 5 Fr Exoseal artery Estimated blood loss: 5 ml Diagnostic catheters Device Type Used For End Catheter Placement MULTIPACK Pigtail 5 Fr Procedure catheter MULTIPACK JL 4.0 5Fr Procedure catheter MULTIPACK 3DRC 5Fr Procedure catheter Procedure Complications No complications Procedure Medications Medication Administration Route Dosage 0.9% NaCl I.V. 100 ml/hr Oxygen etCO2 Nasal cannula 2 l/min Heparin Flush Bag added to field 2 bags (1000units/500ml NS) Lidocaine 2% added to field 20 Versed I.V. 2 mg Fentanyl I.V. 100 mcg Versed I.V. 2 mg Fentanyl I.V. 50 mcg Hemodynamics Rest Heart Rate: 86 (bpm) Snapshots Pre Cath Intra NCS Post Cath Vital Signs Time Heart Resp SPO2 etCO2 NIBP (mmHg) Rhythm Pain Sedation Rate (ipm) (%) (mmHg) Status Level (bpm) 14:51:24 87 11 99 0 159/91(126) NSR 0 (11) 10(A) , No pain 14:57:14 85 18 98 30.5 164/90(130) NSR 0 (11) 10(A) , No pain 15:01:30 88 18 97 32.8 153/93(126) NSR 0 (11) 10(A) , No pain 15:05:46 89 12 96 32.8 154/86(120) NSR 0 (11) 10(A) , No pain 15:10:00 84 15 96 0 147/88(114) NSR 0 (11) 9(A) , No pain 15:14:12 88 15 96 33.5 148/87(110) NSR 0 (11) 9(A) , No pain 15:18:24 88 13 94 29 146/81(104) NSR 0 (11) 9(A) , No pain Medications Time Medication Route Dose Verified Delivered Reason Notes Eff ectiveness by by 14:49:37 0.9% NaCl I.V. 100 Samuel Samuel Per ml/hr Prince Morrison physician RN RN 14:49:47 Oxygen etCO2 2 Samuel Samuel for low 02 Nasal l/min Lorigan Lorigan sats cannula RN RN 14:49:57 Heparin Flush added 2 Samuel Samuel used for Bag to bags Lorigan Prince procedure (1000units/500ml field RN RN NS) 14:50:09 Lidocaine 2% added 20ml Samuel Samuel for local to vial Lorigan Lorigan anesthetic field RN RN 15:07:14 Versed I.V. 2 mg Samuel Samuel for Lorigan Lorigan sedation RN RN 15:07:25 Fentanyl I.V. 100 Samuel Samuel for mcg Lorigan Lorfarrukh sedation RN RN 15:08:53 Versed I.V. 2 mg Samuel Samuel for Lorigan Lorfarrukh sedation RN RN 15:09:50 Fentanyl I.V. 50 Samuel Samuel for mcg Lorigan Prince sedation RN outside sales account executive Log Time Note 14:25:43 Dayday Evans RT(R) sent for patient. Start room use. 14:25:44 Time tracking: Regular hours (M-F 7:00 - 5:00) 14:25:48 Plan of Care:Hemodynamics will remain stable., Cardiac rhythm will remain stable., Comfort level will be maintained., Respiratory function will remain adequate., Patient/ family verbilizes understanding of procedure., Procedure tolerated without complication., Recovers from procedure without complications.. 14:45:25 Patient received from ED to CCL 2 Alert and oriented. Tansferred to table in Supine position. 14:49:37 0.9% NaCl 100 ml/hr I.V. was administered by Samuel Morrison RN; Per physician; 14:49:47 Oxygen 2 l/min etCO2 Nasal cannula was administered by Samuel Morrison RN; for low 02 sats; 14:49:57 Heparin Flush Bag (1000units/500ml NS) 2 bags added to field was administered by Samuel Morrison RN; used for procedure; 14:50:09 Lidocaine 2% 20ml vial added to field was administered by Samuel Morrison RN; for local anesthetic; 14:50:26 Warm blankets applied, and radha hugger turned on for patient comfort. 14:50:27 Correct patient and procedure confirmed by team. 14:50:28 ECG and BP/O2 sat monitors applied to patient. 14:50:28 Signed procedure consent form obtained from patient. 14:50:31 Vital chart was started 14:50:39 Baseline sample Acquired. 14:50:43 Rhythm: sinus rhythm 14:50:44 Full Disclosure recording started 14:50:46 H&P Date Dictated: 02/16/2019 Emergent; H&P N/A. 14:50:47 Pre-op teaching completed and patient verbalized understanding. 14:50:47 Pre-procedure instructions explained to patient. 14:50:49 Family in waiting room. 14:50:50 Patient NPO since Midnight. 14:50:51 Is the patient allergic to Iodine/contrast media? No. 14:50:53 Is patient on blood thinner?Yes 14:50:55 ACC The patient was administered the following blood thiners within the last 24 hours: ACCPlavix 14:50:58 Patient diabetic? No. 14:51:02 Previous problem with sedation/anesthesia? No ? 14:51:03 Snore? Yes 14:51:04 Sleep apnea? No 14:51:05 Deviated septum? No 14:51:06 Sticks out tongue? Yes 14:51:06 Opens mouth fully? Yes 14:51:08 Airway obstruction? No ? 14:51:09 Dentures? No ? 14:51:12 Pre procedure: right dorsailis pedis pulse 1+ Palpable, but thready & weak; easily obliterated 14:51:13 Patient pain scale 0/10 ?. 14:51:16 IV patent on arrival in right forearm with 0.9% NaCl at [facility]. 14:51:19 Lab results completed and on chart. 14:51:21 Right Radial & Right Groin area was prepped with chlora-prep and draped in sterile fashion 14:51:22 Sharps counted by scrub and verified by R.N. 14:51:22 Alarms reviewed by R. N. 15:03:14 --------ALL STOP TIME OUT------ 15:03:14 Physician arrived 15:03:15 Final Timeout: patient, procedure, and site verified with staff and physician. All members of the team are in agreement. 15:03:17 Right groin site verified by team. 15:03:20 Maximum allowable Isovue 300 dose 300ml. Physician notified. (300ml for normal creatinines. For patients with creatinine of 1.7 or higher multiply weight(kg) x 5 divided by creatinine.) 15:03:22 Fire Safety Assessment: A--An alcohol-based skin anteseptic being used preoperatively., C--Open oxygen or nitrous oxide is being used., D--An ESU, laser, or fiber-optic light is being used. 15:03:25 Physical assessment completed. ASA score P 2 - A patient with mild systemic disease as per Torsten Oglesby MD. 15:03:28 Sedation plan: IV Moderate Sedation Medication:Versed, Fentanyl 15:03:31 Use device set Femoral Dx 15:03:32 ACIST Syringe (10970) opened to sterile field. 15:03:33 Medline Cath Pack ([id number]) opened to sterile field. 15:03:33 Bag Decanter (2001S) opened to sterile field. 15:03:34 ACIST Manifold (55749) opened to sterile field. 15:03:34 ACIST Hand Control (01056) opened to sterile field. 15:03:35 Tegaderm 4 x 4 (1626W) opened to sterile field. 15:03:36 DIAGNOSTIC Multipack 5Fr catheter set (HY9239) opened to sterile field. 15:03:36 SHEATH 5FR [place] (UUI234) opened to sterile field. 15:03:37 DIAGNOSTIC WIRE .035 260cm J wire (036851) opened to sterile field. 15:07:14 Versed 2 mg I.V. was administered by Samuel Morrison RN; for sedation; 15:07:25 Fentanyl 100 mcg I.V. was administered by Samuel Morrison RN; for sedation; 15:08:00 Procedure started. 15:08:04 Local anesthetic to right femoral artery with Lidocaine 2% by Torsten Oglesby MD.INITIAL ACCESS ONLY 15:08:23 A 5 Fr sheath was inserted into the Right Femoral artery 15:08:26 Zero performed for pressure channel P1 15:08:53 Versed 2 mg I.V. was administered by Samuel Morrison RN; for sedation; 15:09:50 Fentanyl 50 mcg I.V. was administered by Samuel Morrison RN; for sedation; 15:09:57 A MULTIPACK Pigtail 5 Fr catheter was advanced over the wire and used for Procedure. 15:10:21 LV gram done using LOW 15:10:23 Injector settings: Ml/sec: 10, Volume: 20, 15:10:28 EF : 65 % 15:10:29 LV hemodynamics recorded. 15:10:32 Catheter exchanged over wire. 15:10:35 A MULTIPACK JL 4.0 5Fr catheter was advanced over the wire and used for Procedure. 15:10:56 LCA angiography performed. 15:11:44 CHOICE PT Extra Support 182cm wire ([id number]) opened to sterile field. 15:11:45 INFLATOR Merit BasixCompak (NN8776) opened to sterile field. 15:11:46 SHEATH 6FR [place] (QIC847) opened to sterile field. 15:11:53 Catheter exchanged over wire. 15:12:27 A MULTIPACK 3DRC 5Fr catheter was advanced over the wire and used for Procedure. 15:12:36 RCA angiography performed. 15:13:36 Catheter removed. 15:13:37 EXOSEAL 5Fr (EX500) opened to sterile field. 15:13:44 Sheath removed intact; hemostasis achieved with Exoseal to the Right Femoral artery. 15:13:50 Procedure ended.(Physican Out) 15:14:02 Fluoroscopy time 00.80 minutes. 15:14:08 Fluoroscopy dose: 263 mGy 15:14:08 Flurop Dose total: 263 15:14:13 Contrast amount:Isovue 300 59ml. 15:14:16 Insertion/operative site no bleeding no hematoma. 15:14:18 Post-op/insertion site Right Femoral artery dressed using a 4 x 4 and Tegaderm. 15:14:21 Post right femoral artery:stable, soft, clean and dry 15:14:22 Post Procedure Pulses reassessed and unchanged 15:14:24 Post-procedure physical assessment completed. ASA score P 2 - A patient with mild systemic disease as per Torsten Oglesby MD. 15:14:28 Post procedure rhythm: unchanged. 15:14:30 Estimated blood loss: 5 ml 15:14:31 Patient needs reinforcement of post procedure teaching. 15:14:31 Post procedure instruction explained to patient.Patient verbalizes understanding. 15:20:27 Procedure and supply charges have been captured, reviewed, submitted and are correct. 15:20:30 Procedure Complication : No complications 15:20:32 Vital chart was stopped 15:20:50 See physician's report for complete and final results. 15:20:51 Report given to Pre/Post Procedure Room. 15:20:53 Patient transfered to Pre/Post Procedure Room with Stretcher. 15:20:55 Full Disclosure recording stopped 15:20:55 Procedure ended. 15:20:58 End room use (Document Last) Device Usage Item Name Manufacture Quantity Catalog Number Hospital Part Current Minim al Lot# / Charge Number Stock Stock Serial# Code ACIST Acist 1 18031 352498 872622 073647 20 The TechMap (75150) [employer] Bag Microtek 1 717580 15604 648541 5 DecBlack-[employer] Robotics. (2002S) Medline Medline 1 [id number] 275527 98227 094032 5 Cath Pack ([id number]) ACIST Hand Acist 1 58302 889317 554573 448707 5 Control Medical (13194) Systems Inc ACIST Acist 1 57004 582084 485886 747676 5 Manifold Medical (96708) Systems Inc Tegaderm 4 3M 1 1626W 737802 013742 166888 5 x 4 (1626W) SHEATH 5FR Terumo 1 DYP564 248241 033757 836751 5 [place] (JQB696) DIAGNOSTIC Cardinal 1 UW7550 062803 99095 548123 30 Multipack Health 5Fr catheter set (EB5433) DIAGNOSTIC St Tim 1 848676 454537 728594 764120 30 WIRE .035 260cm J wire (140614) MULTIPACK Cardinal 1 682750 5 Pigtail 5 Health Fr catheter MULTIPACK Cardinal 1 910568 5 JL 4.0 5Fr Health catheter CHOICE PT [place] 1 [id number] 664213 498060 927460 5 Extra Scientific Support 182cm wire (1080349T5) INFLATOR Merit 1 LK6557 384657 278609 204981 15 Merit Medical BasixCompak (FL9189) SHEATH 6FR Terumo 1 XVW848 997657 832234 638199 40 [place] (BBF737) MULTIPACK Cardinal 1 409772 5 3DRC 5Fr Health catheter EXOSEAL 5Fr Cardinal 1 EX500 577169 907369 095208 10 (EX500) Health Signature Audit [place] Stage Time Signature Unsigned Intra-Procedure 02/16/2019 Jakob Mueller 3:24:17 PM RT(R) Signatures Monitor : Jakob Mueller RT Signature : Date : Time : [facility] [address] [place] [address]
--- NOTE | ~2019-02-16 | OP ---
PATIENT NAME: LOREN HOGUE MEDICAL RECORD: [id number] :64 LOCATION:D.[facility] ADMISSION DATE: SURGEON: DWIGHT KAUFMAN MD DATE OF OPERATION: 02/16/2019 PROCEDURES: 1. Left heart catheterization. 2. Selective coronary angiography. 3. Left ventriculogram. PROCEDURE: After informed consent was obtained and after a detailed explanation of risks, benefits as well as alternative therapies, the patient elected to proceed with angiogram and heart catheterization. The right femoral area was prepped and draped in normal sterile fashion. Right femoral artery was cannulated via modified Seldinger technique with placement of 6-Panamanian sheath. All catheters exchanged through this sheath. FINDINGS: Left ventriculogram was performed in a standard 30-degree LOW view reveals preserved cardiac wall motion, but mildly reduced ejection fraction of 40% to 45%. SELECTIVE CORONARY ANGIOGRAPHY: 1. Left main is with no significant angiographic disease. 2. Left anterior descending has 80% stenosis. There is in-stent restenosis in the proximal vessel. 3. The diagonal is relatively large diagonal, has a 95% stenosis at its ostium. Both LAD and diagonal have good lumen suitable for grafting. 4. Left circumflex has 95% stenosis at the ostium. It has a good lumen suitable for grafting. 5. Right coronary is widely patent. OVERALL IMPRESSION: Significant restenosis of drug-eluting stents in the LAD and circumflex. Evaluate for bypass surgery. TRANSINT:[id number] Voice Confirmation ID: [id number] DOCUMENT ID: [id number] DWIGHT KAUFMAN MD CC: [id number] DICTATION DATE: 02/16/19 1525 LOG RAFT WORKER: 02/17/19 0115 [facility] CLI 02/16/19 [place] [id number]
[2019-02-16 10:16] VITALS: Ht 182.9 cm; Wt 72.7 kg
[2019-02-16 10:32] LABS: BASOPHILS 0.2 % (0-2); EOSINOPHILS 1.4 % (0-7); HEMATOCRIT 38.5 % (42.0-54.0); HEMOGLOBIN 12.7 g/dL (13.5-17.5); IMMATURE GRANULOCYTES 0.4 % (0-5); LYMPHOCYTES 16.7 % (15-50); MCH 29.2 pg (26.0-34.0); MCV 88.5 fL (80.0-100.0); MONOCYTES 7.7 % (2-11); NEUTROPHILS 73.6 % (40-80); PLATELET COUNT 243 10x3/uL (130-400); RBC 4.35 10x6/uL (4.20-6.10); RDW 14.2 % (11.5-14.5); WBC 8.3 10x3/uL (4.8-10.8)
[2019-02-16] MEDS ORDERED: ISOSORBIDE MONO10 MG PO (10:37)
[2019-02-16 10:40] LABS: APTT 27.6 SECONDS (22.8-39.4); INR 1.12 (0.85-1.17); PROTIME 13.9 SECONDS (11.6-15.0)
[2019-02-16 10:46] LABS: ALBUMIN 3.6 g/dL (3.4-5.0); ALKALINE PHOSPHATASE 67 U/L (46-116); ALT (SGPT) 47 U/L (10-68); BILIRUBIN - TOTAL 0.53 mg/dL (0.2-1.3); CALC OSMOLALITY 278 mosm/kg (275-300); CALCIUM 8.5 mg/dL (8.5-10.1); CHLORIDE - SERUM 102 mmol/L (98-107); CREATININE - SERUM 1.1 mg/dL (0.6-1.3); GLUCOSE 101 mg/dL (74-106); POTASSIUM - SERUM 3.7 mmol/L (3.5-5.1); PROTEIN - SERUM 7.5 g/dL (6.4-8.2); SODIUM 139 mmol/L (136-145); UREA NITROGEN 16 mg/dL (7-18); eGFR NON AFRICAN AMERICAN 73 mL/min (90-120)
[2019-02-16 10:57] LABS: CKMB 5.1 U/L (0.0-3.6); CREATINE KINASE 282 UL (21-232); MAGNESIUM - SERUM 1.9 mg/dL (1.8-2.4); TROPONIN-I < 0.017 ng/mL (0.000-0.060)
[2019-02-16 13:06] VITALS: BP 144/96
--- NOTE | 2019-02-16 16:02 | NUR ---
1545 DR YE'S NURSE HERE ROUNDING ON PT. PT IS ALERT, DENIES ANY C/O. VSS. DRESSING CDI TO RIGHT GROIN. 1600 DRESSING CDI RIGHT GROIN, PEDAL PULSES PALPABLE. HOB IS FLAT, FAMILY AT BEDSIDE. VSS, PT DENIES NEEDS AT THIS TIME.
--- NOTE | 2019-02-16 16:33 | NUR ---
HOB ELEVATED 30 DEGREES, DRESSING REMAINS CDI TO RIGHT GROIN, AREA IS SOFT AND NONTENDER. PEDAL PULSES PALPABLE. VSS. PT IS ALERT AND DENIES ANY C/O. SANDWICH AND PO FLUIDS SERVED. FAMILY AT BEDSIDE.
--- NOTE | 2019-02-16 16:44 | NUR ---
DRESSING CDI TO RIGHT GROIN, AREA IS SOFT AND NONTENDER. PEDAL PULSES PALPABLE. VSS, PT IS ALERT AND DENIES ANY C/O CHEST DISCOMFORT. RESP WITH EASE ON ROOM AIR. PT CATRINA SANDWICH AND PO FLUIDS WITH NO C/O NAUSEA.
--- NOTE | 2019-02-16 17:07 | NUR ---
DRESSING REMAINS CDI TO RIGHT GROIN, AREA IS SOFT AND NONTENDER. VSS, PT IS ALERT AND DENIES ANY C/O CHEST PAIN. DC INSTRUCITONS REVIEWED WITH PT AND SON WHO VERBALIZE UNDERSTANDING. LAB HERE TO DRAW PT.
--- NOTE | 2019-02-16 17:18 | NUR ---
DRESSING CDI TO RIGHT GROIN, AREA IS SOFT AND NONTENDER. PEDAL PULSES PALPABLE. PT IS ALERT AND DENIES ANY C/O. IV DC'D WITH CATH INTACT AND PT IS DRESSING FOR DC TO HOME WITH ASSIST.
--- NOTE | 2019-02-16 17:37 | NUR ---
PT HAS DRESSED FOR DC TO HOME WITH ASSIST HAS AMBULATED TO THE BATHROOM AND VOIDED QS. IS ALERT AND DENIES ANY C/O. PT ESCORTED TO PRIVATE AUTO VIA WC BY NURSE WITH SON DRIVING HIM HOME.
[2019-02-16 17:54] LABS: PLT FUNCT.(P2Y12) PLAVIX 221 PRU (194-418)
== END 2019-02-16 17:30 | disposition home or self-care (01) ==
LOC: D.ER 10:08 → EDSTATUS 11:52 → D.CATH 14:35
PROVIDERS: Thoracic Surgery (Cardiothoracic Vascular Surgery); ATTEND Family Medicine
DX: I25.110 Atherosclerotic heart disease of native coronary artery with unstable angina pectoris (principal)

== ENCOUNTER 2019-02-21 10:48 | Inpatient (IN) | payer OTHER ==
[~2019-02-21] VITALS: Ht 182.9 cm; Wt 72.2 kg
[2019-02-21] VITALS (12 sets, daily range): BP systolic 106–142; BP diastolic 67–86; BMI 22.3
[~2019-02-21 10:48] MED LIST changes: +ISOSORBIDE MONO10 MG PO
--- NOTE | 2019-02-21 11:34 | NUR ---
PT RECIEVED TO ROOM 1100 ALERT AND ORIENTED VSS DENIES PAIN, AMBULATORY, PLACED ON MONITORING EQUIPMENT WITH ALARMS SET, WRITTEN ORDERS FOR PIV, HEPARIN BOLUS, TO PAGE DOROTHY BORGES NURSE ON ARRIVAL, PAGED, WILL ADMINISTER HEPARIN AFTER LAB DRAW, NOTIFIED LAB OF ORDERS, 20G PIV TO LFA X1 ATTEMPT BY HOTEL DESK CLERK SUZETTE, CALL LIGHT WITHIN REACH, WILL CONTINUE TO MONITOR
[2019-02-21 11:49] LABS: HEMATOCRIT 35.3 % (42.0-54.0); HEMOGLOBIN 11.6 g/dL (13.5-17.5); MCH 28.9 pg (26.0-34.0); MCHC 32.9 g/dL (31.0-37.0); MCV 87.8 fL (80.0-100.0); MEAN PLATELET VOLUME 8.8 fL (7.4-10.4); RBC 4.02 10x6/uL (4.20-6.10); RDW 13.7 % (11.5-14.5); WBC 7.4 10x3/uL (4.8-10.8)
[2019-02-21 11:57] LABS: APTT 26.6 SECONDS (22.8-39.4); INR 1.14 (0.85-1.17); PROTIME 14.1 SECONDS (11.6-15.0)
[2019-02-21 12:48] LABS: PLT FUNCT.(P2Y12) PLAVIX 272 PRU (194-418)
[2019-02-21 15:32] LABS: BASOPHILS 0.3 % (0-2); EOSINOPHILS 3.8 % (0-7); HEMATOCRIT 36.9 % (42.0-54.0); HEMOGLOBIN 12.2 g/dL (13.5-17.5); IMMATURE GRANULOCYTES 0.7 % (0-5); LYMPHOCYTES 23.3 % (15-50); MCH 28.9 pg (26.0-34.0); MCHC 33.1 g/dL (31.0-37.0); MCV 87.4 fL (80.0-100.0); MEAN PLATELET VOLUME 9.4 fL (7.4-10.4); MONOCYTES 6.9 % (2-11); PLATELET COUNT 283 10x3/uL (130-400); RBC 4.22 10x6/uL (4.20-6.10); RDW 13.7 % (11.5-14.5); WBC 7.4 10x3/uL (4.8-10.8)
[2019-02-21 15:40] LABS: INR 1.13 (0.85-1.17)
[2019-02-21 15:42] LABS: APTT 56.8 SECONDS (22.8-39.4)
[2019-02-21 15:55] LABS: ALBUMIN 3.3 g/dL (3.4-5.0); ANION GAP 13.9 mmol/L (8-16); BILIRUBIN - TOTAL 0.18 mg/dL (0.2-1.3); CALCIUM 8.5 mg/dL (8.5-10.1); CARBON DIOXIDE 27.1 mmol/L (21.0-32.0); CREATININE - SERUM 1.2 mg/dL (0.6-1.3); PHOSPHOROUS 3.7 mg/dL (2.5-4.9); PROTEIN - SERUM 6.9 g/dL (6.4-8.2); T4 THYROXIN - FREE 0.9 ng/dL (0.76-1.46); THYROID STIMULATING HORMONE 4.09 uIU/mL (0.36-3.74); URIC ACID 5.8 mg/dL (2.6-7.2)
--- NOTE | 2019-02-21 16:01 | MORECARE ---
CASE MANAGEMENT DISCHARGE SUMMARY PATIENT: LOREN HOGUE UNIT: [id number] ADM DATE: 02/21/19 AGE: 58 : [birth year] SEX: M [facility] AUTHOR: ANCELMO MATTSON PHYSICIAN: REFERRING PHYSICIAN: AVA YE MD DATE OF SERVICE: 02/21/19 Discharge Plan Patient Name: LOREN HOGUE Facility: [facility]:[place] : 1960 Planned Disposition: Home Anticipated Discharge Date: Discharge Date: Expected LOS: Initial Reviewer: [email or web address] Initial Review Date: 02/21/2019 Generated: 02/21/19 5:00 pm Patient Name: LOREN HOGUE Page 19108 at 1601 All edits/amendments must be made on the electronic document DICTATION DATE: 02/21/191599 SEPTIC CLEANER: GISELE 02/21/191599 RPT#: [id number] DC DATE: STATUS: ADM IN [facility] [address] [place] [address] END OF REPORT
--- NOTE | 2019-02-21 16:12 | MORECARE ---
CASE MANAGEMENT DISCHARGE SUMMARY PATIENT: LOREN HOGUE UNIT: [id number] ADM DATE: 02/21/19 AGE: 58 : 64 SEX: M ROOM/BED: [facility] AUTHOR: TWILA,DOC PHYSICIAN: REFERRING PHYSICIAN: AVA YE MD DATE OF SERVICE: 02/21/19 Discharge Plan Patient Name: LOREN HOGUE Facility: [facility]:[place] : 1960 Planned Disposition: Home Anticipated Discharge Date: Discharge Date: Expected LOS: Initial Reviewer: [email or web address] Initial Review Date: 02/21/2019 Generated: 02/21/19 5:11 pm Comments DCP- Discharge Planning Updated by [email or web address]: Mila August on 02/21/19 3:[address] Patient Name: LOREN HOGUE Admission Status: Elective Accout number: [id number] Admission Date: 02-21-2019 : 1960 Admission Diagnosis: Attending: AVA YE Current LOS: 1 Anticipated DC Date: Planned Disposition: Home Primary Insurance: [facility] Discharge Planning Comments: CM met with patient at bedside after explaining CM role and obtaining verbal consent. Patient lives at home alone and plans to return there upon discharge. Patient feels this would be a safe discharge. CM discussed availability / needs of home health and medical equipment. Patient denies any discharge needs at this time. Patient states he will have family drive him home upon discharge. CM will continue to follow and assist as needed with discharge planning / needs. Jigger Operator: Mila August DCPIA - Discharge Planning Initial Assessment Updated by [email or web address]: Mila August on 02/21/19 4:06 pm * Is the patient Alert and Oriented? Yes * How many steps to enter\exit or inside your home? * PCP CYPRIOT * Pharmacy [facility] * Preadmission Environment Home Alone * ADLs Independent * Equipment None * List name and contact numbers for known caregivers / representatives who currently or will assist patient after discharge: KARI HOGUE - SON - [phone] DAMIAN HOGUE - EX- [phone] SURY LOPES - SISTER- [phone] * Verbal permission to speak to the caregivers and representatives has been obtained from the patient. Yes * Community resources currently utilized None * Additional services required to return to the preadmission environment? No * Can the patient safely return to the preadmission environment? Yes * Has this patient been hospitalized within the prior 30 days at any hospital? No Last DP export: 02/21/19 3:00 p Patient Name: LOREN HOGUE Page 68631 at 1612 All edits/amendments must be made on the electronic document DICTATION DATE: 02/21/19 161 TOOL AND FIXTURE REPAIRER: DM 02/21/191610 RPT#: [id number] DC DATE: STATUS: ADM IN [facility] [address] [place] [address] END OF REPORT
--- NOTE | 2019-02-21 16:26 | NUR ---
1300 ATE 100% LUNCH 1500 AMBULATES TO BATHROOM INDEPENDENTLY 1600 TO XRAY WITH XRAY STAFF 1620 RETURNED TO ROOM
--- NOTE | 2019-02-21 17:58 | NUR ---
SPOKE WITH AIMEE IN LAB FOR PTT TO BE DRAWN 1800
--- NOTE | 2019-02-21 18:02 | NUR ---
PER DR YE PIV REMOVED AND 22G PIV TO RFA STARTED WITH LEFT ARM RESERVE SIGN PLACED ABOVE BED
[2019-02-21 18:30] LABS: APPEARANCE CLEAR (CLEAR); BILIRUBIN NEGATIVE (NEGATIVE); COLOR YELLOW (YELLOW); GLUCOSE NEGATIVE (NEGATIVE); KETONE NEGATIVE (NEGATIVE); NITRITE NEGATIVE (NEGATIVE); PROTEIN NEGATIVE (NEGATIVE); UROBILINOGEN NORMAL (NORMAL)
--- NOTE | 2019-02-21 19:00 | NUR ---
REPORT RECEIVED, INITIAL ASSESSMENT COMPLETE, PT AAOx4, DENIES PAIN OR NEEDS AT THIS TIME, REPOSITIONS WITHOUT ASSIST, VSS, WILL CONTINUE TO MONITOR
--- NOTE | 2019-02-21 23:00 | NUR ---
REASSESSMENT COMPLETE PER FLOW SHEET, NO ACUTE CHANGES NOTED, PT AAOx4, DENIES PAIN OR NEEDS AT THIS TIME, VSS, WILL CONTINUE TO MONITOR
[2019-02-22] VITALS (23 sets, daily range): BP systolic 91–151; BP diastolic 54–93; Ht 182.9 cm; Wt 72.2 kg
[2019-02-22 00:58] LABS: HEMATOCRIT 37.5 % (42.0-54.0); HEMOGLOBIN 12.4 g/dL (13.5-17.5); MCH 28.8 pg (26.0-34.0); MCHC 33.1 g/dL (31.0-37.0); RBC 4.31 10x6/uL (4.20-6.10); RDW 13.7 % (11.5-14.5); WBC 7.2 10x3/uL (4.8-10.8)
--- NOTE | 2019-02-22 03:00 | NUR ---
REASSESSMENT COMPLETE PER FLOW SHEET, PT RESTING WITH EYES CLOSED, NO S/S OF ACUTE DISTRESS, PT DENIES PAIN OR NEEDS, VSS,WILL CONTINUE TO MONITOR
--- NOTE | 2019-02-22 07:30 | NUR ---
REPORT RECEIVED. SHIFT ASSESSMENT COMPLETE. PT UP IN CHAIR AT THIS TIME. DENIES NEEDS. CALL LIGHT IN REACH.
--- NOTE | 2019-02-22 11:47 | NUR ---
REASSESSMENT COMPLETED. LUNCH TRAY PROVIDED. PT DENIES ANY ADDITIONAL NEEDS.
--- NOTE | 2019-02-22 13:25 | NUR ---
REPORT RECEIVED FROM WIL NELSON. PT RESTING WITH EYES CLOSED. VSS. ON HEPARIN DRIP. NO FURTHER NEEDS AT THIS TIME.
--- NOTE | 2019-02-22 14:45 | NUR ---
HEPARIN DRIP INCREASED TO 1600 PER HEPARIN PROTOCOL.
--- NOTE | 2019-02-22 17:35 | NUR ---
DR. TRISTAN AT BEDSIDE. CONSENT FORMS SIGNED FOR CABG TOMORROW. CONSENTS PLACED IN CHART. FAMILY AT BEDSIDE. STILL NERVOUS ABOUT PROCEDURE. NO FURTHER NEEDS. WILL CONTINUE TO MONITOR.
--- NOTE | 2019-02-22 19:00 | NUR ---
REPORT RECEIVED, INITIAL ASSESSMENT COMPLETE PER FLOW SHEET, PT AAOx4, VSS, DENIES PAIN OR NEEDS AT THIS TIME, SON AT BEDSIDE, WILL CONTINUE TO ASSESS
--- NOTE | 2019-02-22 23:00 | NUR ---
REASSESSNT COMPLETE PER FLOW SHEET, NO ACUTE CHANGE OR DISTRESS, PT DENIES NEEDS AT THIS TIME, VSS
[2019-02-23] VITALS (26 sets, daily range): BP systolic 92–142; BP diastolic 54–82
[2019-02-23 01:01] LABS: HEMOGLOBIN 12.4 g/dL (13.5-17.5); MCH 29.2 pg (26.0-34.0); MCHC 33.5 g/dL (31.0-37.0); MCV 87.3 fL (80.0-100.0); MEAN PLATELET VOLUME 9.1 fL (7.4-10.4); RBC 4.24 10x6/uL (4.20-6.10); RDW 13.9 % (11.5-14.5); WBC 7.8 10x3/uL (4.8-10.8)
--- NOTE | 2019-02-23 03:00 | NUR ---
COMPLETED REASSESSMENT, NO ACUTE S/S OF DISTRESS NOTED, VSS
--- NOTE | 2019-02-23 05:00 | NUR ---
PRE-OP ORDERS COMPLETED, PT CALM, VSS, NO NEEDS AT THIS TIME
--- NOTE | 2019-02-23 05:15 | NUR ---
PT FAMILY AT BEDSIDE
--- NOTE | 2019-02-23 06:31 | NUR ---
OR TEAM AT BEDSIDE, PT TAKEN TO OR, PRE-OP MEDS TAKEN WITH PT
--- NOTE | 2019-02-23 13:38 | NUR ---
PT ARRIVED TO ROOM 1240 SEDATED FROM SURGERY, ETT 9.0 24 AT LIPLINE PLACED ON VENT BY RT, SEE ASSESSMENT FOR VENT SETTINGS, R IJ CVL DRESSING CDI WTIH PLASMALYTE 100ML/HR NITRO TITRATING TO BP, BP LABILE, ZINACEF INITIATED 11.4ML/HR, BURETROL KVO, WILL TREAT KCL PER PROTOCOL ORDERS, R RADIAL A LINE ZEROED, GOODWAVEFORM, MIDSTERNAL INCISION CDI, SUBSTERNAL TPM WIRES COILED, DONNY DRAIN WITH BLOODY DRAINAGE COMPRESSED, 4 CT SITES Y'D TO 2 DRAINAGE CHAMBERS, BLOODY DRAINAGE, 20CM SUCTION NO AIR LEAK NOTED, RLE HARVEST SITES WITH COBAN GROIN TO ANKLE, CRITICORE DRAINING YELLOW URINE, FAMILY UPDATED BY DR YE, AB REVIEWED BY DR YE, CONTINUES 1:1 MONITORING
--- NOTE | 2019-02-23 16:00 | NUR ---
[facility] NIF AND VITAL CALLED TO DR YE, ORDERS TO EXTUBATE
--- NOTE | 2019-02-23 16:16 | NUR ---
EXTUBATED AND RESTRAINTS REMOVED 1605
--- NOTE | 2019-02-23 16:30 | NUR ---
NOTIFIED DR YE OF PT COMPLAINING OF EXTREME SHARP ABD PAIN AT SITE OF CT INSERTION, ORDERS TO INCREASE MORPHINE TO 4MG AND STAT ABD XRAY
--- NOTE | 2019-02-23 16:46 | NUR ---
ABD XRAY DONE, SPOKE WITH JAYA TO HAVE READ IMMEDIATELY PERR DR YE
--- NOTE | 2019-02-23 16:55 | NUR ---
DR MCCORD AWARE OF NITRO TITRATED UP TO 15ML AND HR 99 NSR
--- NOTE | 2019-02-23 17:21 | NUR ---
NGT INSERTED PER VERBAL ORDERS FROM DR KNOWLES, CONFIRMED WITH AUSCULTATION, REPEAT ABD XRAY DONE, REVIEWED BY DR YE, ORDERS TO TAKE NGT OUT, REMOVED, DR YE TO UPDATE PTS SON
--- NOTE | 2019-02-23 17:26 | NUR ---
VERBAL ORDERS VERRIFIED WITH DR YE2.5MG LOPRESSOR X1, NITRO 25ML/HR CURRENTLY
--- NOTE | 2019-02-23 17:57 | NUR ---
PT LEFT FOR SURGERY WITH DR GEIGER AND OR STAFF AT 1747. DR YE SPOKE WITH SON VIA TELEPHONE AND EXWIFE IN ROOM PER PT REQUEST.
--- NOTE | 2019-02-23 19:00 | NUR ---
REPORT RECEIVED AND ASSESSMENT COMPLETED SEE FLOWSHEET FOR FULL DETAILS. PT RECEIVED FROM OR. PER DR YE, PT HAS SOME EXCESS AIR IN ABD CAVITY. NO SIGNS OF A BLEED. B/P ELEVATED. CURRENTLY ON NITRO B/P 149/89 HR 97 O2 95. PT WAS EXTUBATED BY ANESTHESIA PRIOR TO ARRIVAL. TEMP 98.8. ON 5L NC. ORIENTED X 4. NGT RIGHT NARE LIS. WILL MONITOR CLOSELY THROUGHOUT SHIFT
--- NOTE | 2019-02-23 19:04 | OP ---
PATIENT NAME: LOREN HOGUE MEDICAL RECORD: [id number] :64 LOCATION:[facility] ADMISSION DATE:02/21/19 SURGEON: KELBY YE MD DATE OF OPERATION: 02/23/2019 SURGEON: Kelby Ye MD TILE ROOFER: Bob Lane OPERATION PERFORMED: 1. Coronary artery bypass graft times 3 (left internal mammary artery to LAD, reverse saphenous vein graft from aorta to first diagonal, aorta to obtuse marginal). 2. Endoscopic saphenous vein harvest. PREOPERATIVE DIAGNOSES: Coronary artery disease with history of percutaneous coronary intervention of left anterior descending and circumflex with restenosis and rest angina. POSTOPERATIVE DIAGNOSES: Coronary artery disease with history of percutaneous coronary intervention of left anterior descending and circumflex with restenosis and rest angina. ANESTHESIA: General endotracheal anesthesia. ESTIMATED BLOOD LOSS: Total cardiopulmonary bypass with Cell Saver retransfusion. COMPLICATIONS: None. SPECIMENS: None. CONDITION: Stable. DISPOSITION: CV ICU. OPERATIVE FINDINGS: 1. Good quality greater saphenous vein from the right lower extremity, the smaller caliber portion was used for the diagonal graft. 2. Intraoperative Mayur's test of the left upper extremity confirmed the preoperative finding of incomplete return of flow to the left middle and index finger after release of the ulnar artery, but with radial compression indicating an incomplete left palmar arch. The patient is right-hand dominant, does manual labor. Therefore, the right radial was not used and with preoperative discussion of the risk of sternal dehiscence, the right internal mammary was also not used. 3. LAD 2.0 mm and tortuous. 4. First diagonal 1.25 mm and thin walled. 5. Obtuse marginal 2.0 mm intramyocardial. 6. Somewhat large and fatty heart, but with normal transesophageal echocardiography except for left ventricular hypertrophy. 7. Bilateral hyperexpanded lungs consistent with history of smoking. OPERATIVE INDICATION: Coronary artery disease and rest angina with history of percutaneous coronary intervention and rapid restenosis. OPERATIVE REPORT [id number] LOREN HOGUE OPERATIVE SUMMARY OF PROCEDURE: The patient was brought to the operating suite. General anesthesia was obtained. The patient was prepped and draped. Greater saphenous vein harvested from right lower extremity utilizing endoscopic technique. Side branches were divided with electrocautery. The vessel was ligated proximally and distally removed. Side branches were tied and thin sites were oversewn. Leg was irrigated and closed in 2 layers and wrapped with an elastic wrap. Median sternotomy incision was made. Subcutaneous tissue was divided with electrocautery. The sternum was divided with a saw. Left hemisternum was elevated. Left pleural cavity was entered. Left internal mammary was taken down as a pedicle graft. Sternal retractor was placed. Pericardium was opened. Heparin was given. The aorta was cannulated. Dual stage venous cannula was inserted. The internal mammary was clipped distally and made ready for anastomosis. Once activated clotting time was appropriately elevated, the patient was placed on cardiopulmonary bypass. Sites for distal anastomoses were selected. The patient's temperature was allowed to drift. Antegrade cardioplegia cannula was inserted. Crossclamp was placed. Cardioplegia was given antegrade and this repeated at 15 to 20 minute intervals during the crossclamp time including down the completed vein graft. Distal anastomosis was performed in standard technique. Proximal anastomosis with single cross-clamp technique. Aortic root de-aired, proximal anastomosis tied down. Vein grafts de-aired and flow restored. Proximal and distal anastomotic sites inspected for bleeding. Single suture at the tip of the mammary and at the proximal anastomosis. The patient was fully rewarmed, weaned for cardiopulmonary bypass and was stable. The patient was decannulated. The cannula sites were oversewn. Protamine was given. Atrial and ventricular pacing wires were placed. Drain was placed in mediastinum and both pleural cavities. Hemostasis was ensured. Thorough irrigation was undertaken. Pericardial fat was loosely reapproximated at the midline. The left chest evacuated and irrigated. The internal mammary harvest site was inspected for bleeding. Sternum was closed with wires. Fascia was closed. Subcutaneous tissue was closed. Skin was closed. Dermabond was placed. The needle and sponge counts were reported as correct. The patient was taken to the ICU in stable condition. TRANSINT:[id number] Voice Confirmation ID: [id number] DOCUMENT ID: [id number] KELBY YE MD at 1904 CC: DWIGHT KAUFMAN [id number] DICTATION DATE: 02/23/19 1352 TILE EDGER: 02/23/19 1411 ADM IN [place] [id number] [place] [address]
--- NOTE | 2019-02-23 21:30 | NUR ---
PT NAUSEATED. PRN ZOFRAN ADMINISTERED. NO OTHER CHANGES AT THIS TIME. VSS. WILL CONTINUE TO MONITOR
[2019-02-24] VITALS (32 sets, daily range): BP systolic 92–156; BP diastolic 48–91
[2019-02-24 01:30] LABS: HEMATOCRIT 32.4 % (42.0-54.0); HEMOGLOBIN 10.8 g/dL (13.5-17.5); MCHC 33.3 g/dL (31.0-37.0); MCV 86.9 fL (80.0-100.0); MEAN PLATELET VOLUME 8.6 fL (7.4-10.4); RBC 3.73 10x6/uL (4.20-6.10)
[2019-02-24 01:31] LABS: WBC 14.2 10x3/uL (4.8-10.8)
--- NOTE | 2019-02-24 02:52 | NUR ---
FSBS HAS BEEN LABILE. SWAPPING GLUCOMETER WITH LAB TO ENSURE ACCURATE RESULTS
--- NOTE | 2019-02-24 03:00 | NUR ---
REASSESSMENT COMPLETED. SEE FLOWSHEET FOR FULL DETAILS. VSS. WILL CONITNUE TO MONITOR
[2019-02-24 06:17] LABS: HEMATOCRIT 33.5 % (42.0-54.0); MCH 28.9 pg (26.0-34.0); MCHC 32.8 g/dL (31.0-37.0); MCV 87.9 fL (80.0-100.0); RBC 3.81 10x6/uL (4.20-6.10); RDW 14.2 % (11.5-14.5); WBC 13.3 10x3/uL (4.8-10.8)
[2019-02-24 06:48] LABS: ALBUMIN 2.9 g/dL (3.4-5.0); ALKALINE PHOSPHATASE 38 U/L (46-116); ALT (SGPT) 41 U/L (10-68); BILIRUBIN - TOTAL 0.31 mg/dL (0.2-1.3); CALC OSMOLALITY 287 mosm/kg (275-300); CALCIUM 7.5 mg/dL (8.5-10.1); CARBON DIOXIDE 27.4 mmol/L (21.0-32.0); CHLORIDE - SERUM 107 mmol/L (98-107); CREATININE - SERUM 0.9 mg/dL (0.6-1.3); POTASSIUM - SERUM 4.2 mmol/L (3.5-5.1); PROTEIN - SERUM 5.7 g/dL (6.4-8.2); SODIUM 143 mmol/L (136-145); UREA NITROGEN 12 mg/dL (7-18); eGFR NON AFRICAN AMERICAN > 90 mL/min (90-120)
[2019-02-24 06:50] LABS: GLUCOSE 153 mg/dL (74-106)
--- NOTE | 2019-02-24 09:18 | OP ---
PATIENT NAME: LOREN HOGUE MEDICAL RECORD: [id number] :64 LOCATION:[facility] ADMISSION DATE:02/21/19 SURGEON: KELBY YE MD DATE OF OPERATION: 02/23/2019 SURGEON: Kelby Ye MD CUSTOMER COMPLAINT SERVICE SUPERVISOR: Piero Foote MD PROCEDURE PERFORMED: Limited exploratory lap to upper abdomen. PREOPERATIVE DIAGNOSES: Intra-abdominal free air and abdominal pain following coronary artery bypass graft. POSTOPERATIVE DIAGNOSIS: Normal findings. ANESTHESIA: General endotracheal anesthesia. ESTIMATED BLOOD LOSS: Minimal. COMPLICATIONS: None. SPECIMENS: None. CONDITION: Stable. DISPOSITION: ICU. OPERATIVE FINDINGS: Due to severe upper abdominal pain after extubation about 4 hours after coronary bypass graft and a larger than expected amount of abdominal air, the patient was returned to the operating room where the lower portion of the sternotomy incision was opened and extended about 4 inches down between the chest tubes. The chest tubes were each visualized from the skin level to where they entered the pericardium and the right two tubes were fully extraperitoneal. The center drain tube had a small opening in the peritoneum and the left tube was near the peritoneum with the farthest left tube extraperitoneal. The peritoneum was then fully opened. The stomach was grasped and explored, but it was full of air. There was no injury noted. Peritoneum was closed. Irrigation performed. Fascial closure, subcutaneous closure, and skin closure. INDICATIONS: Severe abdominal pain and free intraperitoneal air. OPERATIVE PROCEDURE IN DETAIL: The patient was brought to the operating suite, prepped and draped. The old lower portion of the incision was opened saving the closure sutures. The sternal closure remained intact. The incision was extended inferiorly and the muscle fascia was opened identifying that the peritoneum was opened about 1 cm just below the center of the tubes, but all tubes were inspected from the level of the skin to the peritoneum with no perforated viscus and mostly an extraperitoneal track. The stomach was inspected with the assistance of general surgery. An NG was eventually placed and the stomach was decompressed. Then, the peritoneum was closed, fascia was closed, subcutaneous tissue was closed, skin was closed. Dermabond was placed. The needle and sponge counts were reported as correct. The patient was taken to ICU in stable condition. OPERATIVE REPORT [id number] LOREN HOGUE TRANSINT:[id number] Voice Confirmation ID: [id number] DOCUMENT ID: [id number] KELBY YE MD at 0918 CC: [id number] DICTATION DATE: 02/23/191909 PHYSICIAN ASST: 02/24/19 0656 ADM IN [facility] [address] [place] [address]
--- NOTE | 2019-02-24 10:45 | NUR ---
0900: DR. YE HERE. ASSISTED BACK TO BED. 0930: CT X [address] YE. 1000: CXR DONE TO VIEW NGT AFTER CT REMOVED. 1015: NGT RETRACTED BY APPROX 2 INCHES. GUSH OF AIR AND GASTRIC CONTENTS NOTED. 1030: R RADIAL ART LINE DC'D. MANUAL PRESSURE HELD X 2 MIN. 2X2 DRESSING APPLIED. 1030: R FOREARM IV DC'D.
--- NOTE | 2019-02-24 16:35 | NUR ---
NGT DC'D PER SELF. 1645: DR. YE NOTIFIED OF PT REMOVING NGT. ORDER REC'D FOR PO ICE CHIP.
--- NOTE | 2019-02-24 19:33 | NUR ---
REPORT RECEIVED AND ASSESSMENT COMPLETED. SEE FLOWSHEET FOR FULL DETAILS. VSS. PT REMOVED OWN NGT DURING AM SHIFT. DR YE AWARE. INSTRUCTIONS TO LEAVE NGT OUT, SOME ICE CHIPS OKAY, AND VERY SMALL SIPS OF WATER. WILL MONITOR THROUGHOUT SHIFT
--- NOTE | 2019-02-24 21:00 | NUR ---
2100 MEDS GIVEN. VSS. FAMILY AT BEDSIDE. WILL MONITOR
--- NOTE | 2019-02-24 23:00 | NUR ---
REASSESSMENT COMPLETED. SEE FLOWSHEET FOR FULL DETAILS
[2019-02-25] VITALS (24 sets, daily range): BP systolic 126–164; BP diastolic 65–97
--- NOTE | 2019-02-25 01:00 | NUR ---
0000 HEMOGRAM DRAWN VSS WILL CONTINUE TO MONITOR THROUGHOUT SHIFT
--- NOTE | 2019-02-25 01:00 | NUR ---
NO CHANGES IN PT STATUS VSS WILL MONITOR
[2019-02-25 01:37] LABS: HEMATOCRIT 29.8 % (42.0-54.0); HEMOGLOBIN 9.7 g/dL (13.5-17.5); MCH 28.8 pg (26.0-34.0); MCHC 32.6 g/dL (31.0-37.0); MCV 88.4 fL (80.0-100.0); MEAN PLATELET VOLUME 9.1 fL (7.4-10.4); RBC 3.37 10x6/uL (4.20-6.10); RDW 14.4 % (11.5-14.5); WBC 10.4 10x3/uL (4.8-10.8)
--- NOTE | 2019-02-25 03:00 | NUR ---
REASSESSMENT COMPLETED SEE FLOWSHEET
--- NOTE | 2019-02-25 05:00 | NUR ---
I/O COLLECTED. BED BATH AND LINEN CHANGE PERFORMED. PT UP IN CHAIR. DAVILA CARE COMPLETED.
[2019-02-25 05:38] LABS: HEMATOCRIT 30.3 % (42.0-54.0); HEMOGLOBIN 9.9 g/dL (13.5-17.5); MCHC 32.7 g/dL (31.0-37.0); MCV 88.9 fL (80.0-100.0); MEAN PLATELET VOLUME 9.3 fL (7.4-10.4); RBC 3.41 10x6/uL (4.20-6.10); RDW 14.5 % (11.5-14.5); WBC 10.1 10x3/uL (4.8-10.8)
[2019-02-25 06:05] LABS: ALBUMIN 2.6 g/dL (3.4-5.0); ALKALINE PHOSPHATASE 43 U/L (46-116); ALT (SGPT) 35 U/L (10-68); BILIRUBIN - TOTAL 0.44 mg/dL (0.2-1.3); CALC OSMOLALITY 280 mosm/kg (275-300); CALCIUM 8.2 mg/dL (8.5-10.1); CARBON DIOXIDE 29.5 mmol/L (21.0-32.0); CHLORIDE - SERUM 104 mmol/L (98-107); GLUCOSE 131 mg/dL (74-106); POTASSIUM - SERUM 4.3 mmol/L (3.5-5.1); SODIUM 140 mmol/L (136-145); UREA NITROGEN 13 mg/dL (7-18); eGFR NON AFRICAN AMERICAN 82 mL/min (90-120)
--- NOTE | 2019-02-25 12:51 | NUR ---
1240: DR. YE HERE. NEW ORDERS REC'D. 1245: IVF AND SCALE OPERATOR MORPHINE PRINCESS'Agueda. R IJ SALINE LOCKED. 1250: GIOVANNI SWAN.
--- NOTE | 2019-02-25 19:30 | NUR ---
REPORT RECEIVED, INITIAL ASSESSMENT COMPLETE SEE FLOW SHEET, PT AAOx4, DENIES PAIN OR NEEDS, VSS, REPOSITIONES WITHOUT ASSIST, WILL CONTINUE TO MONITOR
--- NOTE | 2019-02-25 23:00 | NUR ---
REASSESSMENT COMPLETE, NO ACUTE CHANGED, PT DENIES NEEDS, RESTING COMFORTABLY IN BED, VSS
[2019-02-26] VITALS (25 sets, daily range): BP systolic 116–159; BP diastolic 61–96
[2019-02-26 01:07] LABS: HEMATOCRIT 28.1 % (42.0-54.0); HEMOGLOBIN 9.3 g/dL (13.5-17.5); MCH 29.2 pg (26.0-34.0); MCHC 33.1 g/dL (31.0-37.0); MCV 88.4 fL (80.0-100.0); MEAN PLATELET VOLUME 8.8 fL (7.4-10.4); RBC 3.18 10x6/uL (4.20-6.10); WBC 7.6 10x3/uL (4.8-10.8)
--- NOTE | 2019-02-26 03:00 | NUR ---
REASSESSMENT COMPLETE SEE FLOW SHEET, PT SLEEPING, WAKES EASILY, VSS, COMPLETE BED BATH AND LINEN CHANGE
--- NOTE | 2019-02-26 05:00 | NUR ---
PT OOB TO CHAIR, VSS, NO ACUTE DISTRESS NOTED
[2019-02-26 06:03] LABS: HEMATOCRIT 30.3 % (42.0-54.0); HEMOGLOBIN 9.9 g/dL (13.5-17.5); MCH 28.9 pg (26.0-34.0); MCHC 32.7 g/dL (31.0-37.0); MCV 88.3 fL (80.0-100.0); MEAN PLATELET VOLUME 9.4 fL (7.4-10.4); RBC 3.43 10x6/uL (4.20-6.10); RDW 14.1 % (11.5-14.5); WBC 8.6 10x3/uL (4.8-10.8)
[2019-02-26 06:05] LABS: ALBUMIN 2.6 g/dL (3.4-5.0); ALKALINE PHOSPHATASE 47 U/L (46-116); ALT (SGPT) 33 U/L (10-68); BILIRUBIN - TOTAL 0.53 mg/dL (0.2-1.3); CALC OSMOLALITY 277 mosm/kg (275-300); CALCIUM 8.4 mg/dL (8.5-10.1); CARBON DIOXIDE 28.6 mmol/L (21.0-32.0); CHLORIDE - SERUM 102 mmol/L (98-107); CREATININE - SERUM 0.9 mg/dL (0.6-1.3); GLUCOSE 114 mg/dL (74-106); POTASSIUM - SERUM 4.1 mmol/L (3.5-5.1); PROTEIN - SERUM 6.3 g/dL (6.4-8.2); SODIUM 139 mmol/L (136-145); UREA NITROGEN 11 mg/dL (7-18); eGFR NON AFRICAN AMERICAN > 90 mL/min (90-120)
--- NOTE | 2019-02-26 07:00 | NUR ---
ASSESSMENT COMPLETE PER FLOWSHEET.
--- NOTE | 2019-02-26 08:00 | NUR ---
DR YE HERE SEEING PATIENT.
--- NOTE | 2019-02-26 12:06 | NUR ---
Nutrition follow up s/p CABG Diet advanced to cardiac. Pt is eating 100% of meals Pt is drinking some Boost Tolerating meals well Pt reports no nutritional questions or concerns at this time RD following
--- NOTE | 2019-02-26 13:00 | NUR ---
RIJ LINE DCD. 20G IN L ARM X 1 STICK.
--- NOTE | 2019-02-26 13:42 | NUR ---
RED HERE DC DONNY DRAIN AND TPM WIRE.
[2019-02-26] MEDS ORDERED: PERCOCET 5-3251 TAB PO (15:47)
--- NOTE | 2019-02-26 18:00 | NUR ---
UP IN CHAIR VISITING WITH FRIENDS. NO CO AT TIME.
--- NOTE | 2019-02-26 19:00 | NUR ---
REC'D TO CARE, PT UP IN ROOM, GAIT STEADY. PT TO BR AND THEN BACK IN BED. WAIST PLEATER PER FLOWSHEET. PT ALERT AND ORIENTED, DENIES NEEDS. VSS. C/L IN USE.
--- NOTE | 2019-02-26 20:23 | NUR ---
ADMIN PO MEDS AND PRN PERCOCET PER PT REQUEST. PT DENIES OTHER NEEDS.
--- NOTE | 2019-02-26 21:09 | NUR ---
RESTING QUIETLY, VSS. REPORTS ADEQUATE PAIN RELIEF.
--- NOTE | 2019-02-26 23:02 | NUR ---
REASSESSMENT PER FLOWSHEET, NO ACUTE CHANGES. PT RESTING QUIETLY, REPORTS ADEQUATE PAIN RELIEF. VSS. ALARMS ON AND C/L IN REACH.
[2019-02-27] VITALS (26 sets, daily range): BP systolic 121–149; BP diastolic 56–99
--- NOTE | 2019-02-27 00:55 | NUR ---
RESTING WITH EYES CLOSED, VSS. NO SIGN OF DISTRESS.
--- NOTE | 2019-02-27 03:07 | NUR ---
REASSESSMENT PER FLOWSHEET, NO ACUTE CHANGES. PT AWAKE, DENIES NEEDS. URINAL EMPTIED OF 550ML CLEAR, YELLOW URINE. ALARMS ON AND C/L IN REACH.
[2019-02-27 05:19] LABS: HEMATOCRIT 32.8 % (42.0-54.0); HEMOGLOBIN 10.9 g/dL (13.5-17.5); MCHC 33.2 g/dL (31.0-37.0); MCV 87.2 fL (80.0-100.0); MEAN PLATELET VOLUME 9.3 fL (7.4-10.4); RBC 3.76 10x6/uL (4.20-6.10); RDW 13.9 % (11.5-14.5)
[2019-02-27 05:38] LABS: ALBUMIN 2.9 g/dL (3.4-5.0); ALKALINE PHOSPHATASE 48 U/L (46-116); ALT (SGPT) 33 U/L (10-68); BILIRUBIN - TOTAL 0.54 mg/dL (0.2-1.3); CARBON DIOXIDE 34.1 mmol/L (21.0-32.0); CHLORIDE - SERUM 102 mmol/L (98-107); GLUCOSE 114 mg/dL (74-106); POTASSIUM - SERUM 3.8 mmol/L (3.5-5.1); PROTEIN - SERUM 6.6 g/dL (6.4-8.2); SODIUM 140 mmol/L (136-145); eGFR NON AFRICAN AMERICAN 82 mL/min (90-120)
[2019-02-27 05:39] LABS: WBC 5.9 10x3/uL (4.8-10.8)
--- NOTE | 2019-02-27 05:43 | NUR ---
TO XRAY VIA W/C.
[2019-02-27 05:49] LABS: CALC OSMOLALITY 281 mosm/kg (275-300); UREA NITROGEN 17 mg/dL (7-18)
--- NOTE | 2019-02-27 05:57 | NUR ---
BACK IN ROOM AND UP IN CHAIR. ADMIN PRN PERCOCET PER PT REQUEST. ALARMS ON AND C/L IN REACH.
--- NOTE | 2019-02-27 07:00 | NUR ---
REPORT RECIEVED FROM THE OFF GOING RN. SEE ASSESSMENT IN THE PTS FLOW SHEET. PT SITTING UPRIGHT IN THE BEDSIDE CHAIR. MIDSTERNAL AND SUBSTERNAL DRESSING C/D/I. NSR ON THE MONITOR. PT INSTRUCTED TO SPLINT WITH HIS CHEST WHILE COUGHING. INSTRUCTED TO USE IS 10X'S/H. PT PULLS ABOUT 1500 ON HIS IS. PT DENIES PAIN. PT SELF DEPENDENT ON ADL'S. COFFEE PROVIDED FOR THE PT. BREAKFAST PROVIDED FOR THE PT. RLE INCISIONS DIRECT CARE WORKER AND WELL APPROXIMATED. NO S/SX OF INFECTIONS NOTED. CALL LIGHT IN REACH. WILL CONT POC.
--- NOTE | 2019-02-27 08:19 | NUR ---
PRN DOCULAX AND SCHEDUALED MIRALAX GIVEN PER ORDERS PRN CONSITIPATION.
--- NOTE | 2019-02-27 09:21 | NUR ---
PT WENT TO THE BATHROOM AND STATED THAT HE HAD A MEDIUM FORMED BOWEL MOVEMENT AND FELT BETTER. PT AMBULATES WELL. A BASIN OF SOAP AND WATER WITH RAGS PROVIDED FOR THE PT. PT GAVE HIMSELF A FULL BED BATH NO WITH NO ASSISTANCE. PT ALSO PREFORMED SELF ORAL CARE. NO ISSUES AND PT TOLERATED WELL. PT CALL LIGHT IN REACH. WILL CONT POC.
--- NOTE | 2019-02-27 11:25 | NUR ---
PT NOTED TO HAVE A SMALL RED RASH NOTED TO RIGHT BUTTOCKS. PT STATES THAT IT ITCHES. DR KONG PAGED. ORDERS FOR PO BENADRYL. SEE MAR
--- NOTE | 2019-02-27 11:50 | NUR ---
LUNCH PROVIDED FOR THE PT. NO S/SX OF DISTRESS/DISOCMFORT NOTED. NSR ON THE MONITOR. VSS. CALL LIGHT IN [facility]. WILL CONT POC.
--- NOTE | 2019-02-27 12:26 | NUR ---
REPORT GIVEN TO ANGELICA NELSON.
--- NOTE | 2019-02-27 13:40 | NUR ---
RESTING COMFORTABLY IN CHAIR. DENIES ANY NEEDS AT THIS TIME. WILL CONTINUE TO MONITOR.
--- NOTE | 2019-02-27 15:30 | NUR ---
RATES PAIN 5/10 INCISIONAL. PERCOCET 5MG TAB GIVEN PER ORDERS.
--- NOTE | 2019-02-27 16:43 | NUR ---
FEM STOP REMOVED PER ORDERS. NO BLEEDING OR HEMATOMA NOTED. MILD BRUISING NOTED. PT SITTING UP IN BED. MEAL TRAY DELIVERED AND SET UP. FIANCE AT BEDSIDE. NO FURTHER NEEDS AT THIS TIME. WILL CONTINUE TO MONITOR.
--- NOTE | 2019-02-27 16:47 | NUR ---
MEAL TRAY DELIVERED AND SET UP. FAMILY AT BEDSIDE.
--- NOTE | 2019-02-27 16:53 | NUR ---
ANUEL POLLACK WITH CARDIOLOGY OFFICE BY TO SEE PATIENT
[2019-02-27 17:55] LABS: CHOL - HDL RATIO 3.3 ratio (2.3-4.9); LDL-HDL RATIO 1.8 ratio (1.5-3.5)
--- NOTE | 2019-02-27 19:20 | NUR ---
REC'D TO CARE, DIRECTOR OF RELIGIOUS LIFE PER FLOWSHEET. PT AWAKE, ORIENTED, VSS. SKIN INCISION, DSGS NOTED. PPP X 4. BATH ITEMS PROVIDED PER PT REQUEST. ALARMS ON AND C/L IN REACH.
--- NOTE | 2019-02-27 21:07 | NUR ---
ADMIN PO MEDS PER MD ORDER AND PRN PERCOCET PER PT REQUEST. VSS. DENIES OTHER NEEDS.
--- NOTE | 2019-02-27 23:07 | NUR ---
REASSESSMENT PER FLOWSHEET, NO ACUTE CHANGES. AWAKENS EASILY, DENIES NEEDS.
[2019-02-28] VITALS (15 sets, daily range): BP systolic 97–163; BP diastolic 52–98
--- NOTE | 2019-02-28 01:15 | NUR ---
PT VOIDED 600ML CLEAR, YELLOW URINE IN URINAL. DENIES NEEDS. VSS. C/L IN REACH.
--- NOTE | 2019-02-28 03:12 | NUR ---
REASSESSMENT PER FLOWSHEET, NO ACUTE CHANGES. PT RESTING QUIETLY, VSS. DENIES NEEDS.
--- NOTE | 2019-02-28 04:00 | NUR ---
TO XRAY VIA W/C, THEN BACK TO ROOM. PT INDEPENDENT WITH AM CARE, HIBICLENS BATH AND WASHED HAIR.
[2019-02-28 04:24] LABS: HEMATOCRIT 36.2 % (42.0-54.0); MCH 28.9 pg (26.0-34.0); MCHC 33.1 g/dL (31.0-37.0); MCV 87.2 fL (80.0-100.0); MEAN PLATELET VOLUME 9.1 fL (7.4-10.4); RBC 4.15 10x6/uL (4.20-6.10); RDW 13.8 % (11.5-14.5); WBC 6.7 10x3/uL (4.8-10.8)
[2019-02-28 04:50] LABS: ALBUMIN 3.1 g/dL (3.4-5.0); BILIRUBIN - TOTAL 0.53 mg/dL (0.2-1.3); CALCIUM 9.2 mg/dL (8.5-10.1); CARBON DIOXIDE 29.7 mmol/L (21.0-32.0); CREATININE - SERUM 1.1 mg/dL (0.6-1.3); PROTEIN - SERUM 7.2 g/dL (6.4-8.2)
[2019-02-28 04:51] LABS: ANION GAP 12.7 mmol/L (8-16); POTASSIUM - SERUM 4.4 mmol/L (3.5-5.1)
--- NOTE | 2019-02-28 05:22 | NUR ---
UP IN CHAIR. C/O "HURTING AFTER GETTING CLEANED UP".. ADMIN PRN PERCOCET PER PT REQUEST. VSS. C/L IN REACH.
--- NOTE | 2019-02-28 06:13 | NUR ---
UP CHAIR, RESTING WITH EYES CLOSED, NO SIGN OF DISTRESS.
--- NOTE | 2019-02-28 07:10 | NUR ---
SHIFT REPORT RECEIVED. UP IN CHAIR. NO COMPLAINTS AT THIS TIME. HR 102 SINUS TACH. BP 140/96. ORAL TEMP 97.8. MIDSTERNAL DRESSING C/D/I. SUBSTERNAL INCISIONS ABDIEL WELL APPROXIMATED. RIGHT LEG HARVEST SITES OPEN TO AIR, WELL APPROXIMATED. PT STATES THAT HE HAD BM EARLY THIS MORNING. SHIFT ASSESSMENT COMPLETED. WILL CONTINUE TO MONITOR.
--- NOTE | 2019-02-28 08:50 | NUR ---
Nutrition Follow Up Reviewed chart and spoke with pt Excellent po intake Provided pt with heart healthy nutrition therapy handout RD following per protocol
--- NOTE | 2019-02-28 09:00 | NUR ---
RESTING COMFORTABLY IN CHAIR. ATE 100% OF MEAL AT THIS TIME. WILL CONTINUE TO MONITOR.
--- NOTE | 2019-02-28 10:39 | TEE ---
PATIENT:LOREN HOGUE MEDICAL RECORD: [id number] LOCATION:[place] [address] AGE OF PATIENT: 58 ADMISSION DATE: 02/21/19 SEX: M REFERRING PHYSICIAN: INTERPRETING PHYSICIAN: DWIGHT KAUFMAN MD TRANSESOPHAGEAL ECHOCARDIOGRAM Date: 02/23/19 SEBASTIAN CHARGE Y INDICATIONS: CABG PREMEDICATIONS: PATIENT'S RESPONSE PROCEDURE DOPPLER MEASUREMENTS: LVIT LA PA RA LVOT RVOT Asc. Ao AV Gradient Peak AV Mean AV Area MV Gradient Peak MV Mean MV Area INTERPRETATION: Doppler: 2-D: COLOR FLOW DOPPLER NORMAL SALINE STUDY: MISCELLANOUS: LVD: 4.8 LVS: 4.0 DIAGNOSIS: PLAN: Combination Welder:Arturo Baer Diagnostic Technician: Ameya DALY COMMENTS: DATE OF SERVICE: 02/23/2019 PROCEDURE: Transesophageal echo evaluation of valvular structures during bypass surgery. FINDINGS: 1. Left ventricular chamber size is within normal limits. Left ventricular systolic function is mildly reduced. Overall ejection fraction 45% to 50%. After the procedure, ejection fraction improved to 50% to 55%. TRANSESOPHAGEAL ECHOCARDIOGRAM REPORT [id number] LOREN HOGUE 2. Left atrium, right atrium, and right ventricular chamber sizes are within normal limits. 3. Valvular structures have normal structure and motion. 4. Doppler interrogation only reveals trace mitral regurgitation. No other valvular insufficiency or stenosis. 5. No evidence of pericardial effusion or left ventricular thrombus. TRANSINT:[id number] Voice Confirmation ID: [id number] DOCUMENT ID: [id number] at 1039 CC: [id number] DICTATION DATE: 02/23/19 1215 EQUIPMENT MONITOR PHOTOTYPESETTING: 02/24/19 0722 ADM IN [place] [id number] [place] [id number]
[2019-02-28] MEDS ORDERED: LIPITOR10 MG PO (12:24)
[2019-02-28] MEDS ORDERED: LOPRESSOR25 MG PO (12:24)
[2019-02-28] MEDS ORDERED: COLACE100 MG PO (12:26)
--- NOTE | 2019-02-28 13:18 | NUR ---
CARDIOLOGY OFFICE CALLED. SPOKE WITH ROXANE. FOLLOW UP APPOINTMENT SCHEDULED ON MARCH 15, 2019 AT 10:40AM.
--- NOTE | 2019-02-28 14:07 | NUR ---
DR. KONG'S OFFICE RETURNED CALL. SET UP APPOINTMENT FOR MARCH 28, 2019 AT 2:20PM.
--- NOTE | 2019-02-28 14:22 | NUR ---
DISCHARGE INTRUCTIONS REVIEWED WITH PT. SIGNED COPY PLACED IN CHART. PERSONAL BELONGINGS SENT WITH PATIENT. WHEELED OUT TO PERSONAL VEHICLE.
--- NOTE | 2019-02-28 15:43 | MORECARE ---
CASE MANAGEMENT DISCHARGE SUMMARY PATIENT: LOREN HOGUE UNIT: [id number] ADM DATE: 02/21/19 AGE: 58 : [birth year] SEX: M ROOM/BED: [facility] AUTHOR: TWILA,DOC PHYSICIAN: REFERRING PHYSICIAN: AVA YE MD DATE OF SERVICE: 02/28/19 Discharge Plan Patient Name: LOREN HOGUE Facility: [facility]:[place] : 1960 Planned Disposition: Home Anticipated Discharge Date: Discharge Date: 02/28/2019 Expected LOS: Initial Reviewer: [email or web address] Initial Review Date: 02/21/2019 Generated: 02/28/19 4:43 pm DCP- Discharge Planning Updated by [email or web address]: Mila August on 02/21/19 3:[address] Patient Name: LOREN HOGUE Admission Status: Elective Accout number: [id number] Admission Date: 02-21-2019 : 1960 Admission Diagnosis: Attending: AVA YE Current LOS: 1 Anticipated DC Date: Planned Disposition: Home Primary Insurance: [facility] Discharge Planning Comments: CM met with patient at bedside after explaining CM role and obtaining verbal consent. Patient lives at home alone and plans to return there upon discharge. Patient feels this would be a safe discharge. CM discussed availability / needs of home health and medical equipment. Patient denies any discharge needs at this time. Patient states he will have family drive him home upon discharge. CM will continue to follow and assist as needed with discharge planning / needs. Med Care Manager: Mila August DCPIA - Discharge Planning Initial Assessment Updated by [email or web address]: Mila August on 02/21/19 4:06 pm * Is the patient Alert and Oriented? Yes * How many steps to enter\exit or inside your home? * PCP [facility] * Pharmacy [facility] * Preadmission Environment Home Alone * ADLs Independent * Equipment None * List name and contact numbers for known caregivers / representatives who currently or will assist patient after discharge: KARI HOGUE - SON - [phone] DAMIAN HOGUE - EX- [phone] SURY LOPES - SISTER- [phone] * Verbal permission to speak to the caregivers and representatives has been obtained from the patient. Yes * Community resources currently utilized None * Additional services required to return to the preadmission environment? No * Can the patient safely return to the preadmission environment? Yes * Has this patient been hospitalized within the prior 30 days at any hospital? No Last DP export: 02/21/19 3:12 p Patient Name: LOREN HOGUE Page [id number] at 1543 All edits/amendments must be made on the electronic document DICTATION DATE: 02/28/19 1543 SEW OUT OPERATOR: GISELE 02/28/19 1543 RPT#: [id number] DC DATE:02/28/19 STATUS: DIS IN [facility] [address] [place] [address] END OF REPORT
== END 2019-02-28 14:24 | disposition home or self-care (01) | DRG 236 ==
LOC: D.CVICU 10:48 → D.SDCHOLD 02-23 07:30 → D.CVICU 02-28 14:24
PROVIDERS: Internal Medicine Interventional Cardiology; ADMIT Thoracic Surgery (Cardiothoracic Vascular Surgery); ATTEND Thoracic Surgery (Cardiothoracic Vascular Surgery)
PROC: 021109W Bypass Coronary Artery, Two Arteries from Aorta with Autologous Venous Tissue, Open Approach (ICD-10-PCS; 2019-02-23)
PROC: 06BP4ZZ Excision of Right Saphenous Vein, Percutaneous Endoscopic Approach (ICD-10-PCS; 2019-02-23)
PROC: 0D9600Z Drainage of Stomach with Drainage Device, Open Approach (ICD-10-PCS; 2019-02-23)
PROC: B24BZZ4 Ultrasonography of Heart with Aorta, Transesophageal (ICD-10-PCS; 2019-02-23)
PROC: 5A1221Z Performance of Cardiac Output, Continuous (ICD-10-PCS; 2019-02-23)
PROC: 02100Z9 Bypass Coronary Artery, One Artery from Left Internal Mammary, Open Approach (ICD-10-PCS; principal; 2019-02-23 07:30)
DX: I25.119 Atherosclerotic heart disease of native coronary artery with unspecified angina pectoris (principal); E03.9 Hypothyroidism, unspecified; N40.0 Benign prostatic hyperplasia without lower urinary tract symptoms; G89.18 Other acute postprocedural pain; I10 Essential (primary) hypertension; K66.8 Other specified disorders of peritoneum; K31.89 Other diseases of stomach and duodenum

== ENCOUNTER → 2019-03-19 13:37 | Outpatient (CLI) | payer OTHER ==
[2019-02-22 14:44] VITALS: BMI 22.5
[~2019-03-19 13:37] MED LIST changes: +COLACE100 MG PO; +LIPITOR10 MG PO; +LOPRESSOR25 MG PO; +PERCOCET 5-3251 TAB PO
[2019-03-19 14:54] LABS: ANION GAP 11.7 mmol/L (8-16); BILIRUBIN - TOTAL 0.25 mg/dL (0.2-1.3); CALCIUM 9.2 mg/dL (8.5-10.1); CARBON DIOXIDE 29.2 mmol/L (21.0-32.0); CREATININE - SERUM 1.2 mg/dL (0.6-1.3); POTASSIUM - SERUM 3.9 mmol/L (3.5-5.1); PROTEIN - SERUM 7.6 g/dL (6.4-8.2)
[2019-03-19 15:34] LABS: HEMATOCRIT 39.6 % (42.0-54.0); HEMOGLOBIN 13.2 g/dL (13.5-17.5); MCH 28.6 pg (26.0-34.0); MCHC 33.3 g/dL (31.0-37.0); MCV 85.7 fL (80.0-100.0); MEAN PLATELET VOLUME 9.7 fL (7.4-10.4); RBC 4.62 10x6/uL (4.20-6.10); RDW 13.2 % (11.5-14.5); WBC 8.1 10x3/uL (4.8-10.8)
== END | disposition home or self-care (01) ==
LOC: D.LAB 13:37
PROVIDERS: ATTEND Thoracic Surgery (Cardiothoracic Vascular Surgery)
DX: J90 Pleural effusion, not elsewhere classified (principal); D64.9 Anemia, unspecified

== ENCOUNTER → 2019-05-08 18:46 | Outpatient (CLI) | payer OTHER ==
[2019-02-22 14:44] VITALS: BMI 22.5
[~2019-05-08 18:46] MED LIST changes: +KEFLEX750 MG PO
[2019-05-08 23:17] LABS: CHOL - HDL RATIO 2.9 ratio (2.3-4.9); LDL-HDL RATIO 1.3 ratio (1.5-3.5)
== END | disposition home or self-care (01) ==
LOC: D.LABREF 18:46
PROVIDERS: ATTEND Internal Medicine Cardiovascular Disease
DX: I25.10 Atherosclerotic heart disease of native coronary artery without angina pectoris (principal); E78.5 Hyperlipidemia, unspecified; I10 Essential (primary) hypertension

== ENCOUNTER 2019-05-09 06:10 | Day surgery (SDC) | payer OTHER ==
[2019-05-08 11:09] LABS: HEMATOCRIT 37.7 % (42.0-54.0); HEMOGLOBIN 12.2 g/dL (13.5-17.5); MCH 27.5 pg (26.0-34.0); MCHC 32.4 g/dL (31.0-37.0); MCV 85.1 fL (80.0-100.0); MEAN PLATELET VOLUME 8.8 fL (7.4-10.4); RBC 4.43 10x6/uL (4.20-6.10); RDW 14.2 % (11.5-14.5); WBC 5.8 10x3/uL (4.8-10.8)
[~2019-05-09] VITALS: Ht 182.9 cm; Wt 72.6 kg
--- NOTE | ~2019-05-09 | OP ---
PATIENT NAME: LOREN HOGUE MEDICAL RECORD: [id number] :64 LOCATION:D.OPS ADMISSION DATE: SURGEON: GINGER JORGE DPM DATE OF OPERATION: 05/09/2019 PREOPERATIVE DIAGNOSES: 1. HAV, left foot. 2. Instability, left first met cuneiform joint. 3. Rupture of plantar plate, left foot. 4. Hammertoe deformity, left second, third and fourth. POSTOPERATIVE DIAGNOSES: 1. HAV, left foot. 2. Instability, left first met cuneiform joint. 3. Rupture of plantar plate, left foot. 4. Hammertoe deformity, left second, third and fourth. PROCEDURES 1. Pham bunionectomy, left foot. 2. First met cuneiform joint fusion, left foot. 3. Amor osteotomy, left third metatarsal. 4. Plantar plate repair, left third metatarsophalangeal joint. 5. PIPJ fusion, left second digit. 6. PIPJ fusion, left third digit. 7. Flexor tenotomy, left fourth digit. ANESTHESIA: Preoperative popliteal block per the anesthesia department as well as intraoperative general anesthesia. HEMOSTASIS: Left thigh tourniquet at 350 mmHg. PREOPERATIVE DETAILS: The patient was taken to the OR and placed on the operating table in a supine position. This was followed by induction of general anesthesia and the left extremity was then prepped and draped in usual aseptic technique followed by exsanguination and inflation of the tourniquet. PROCEDURE #1: Pham bunionectomy, left foot. A 15-blade was used to create an incision from the dorsal aspect of the medial cuneiform distally to the base of proximal phalanx of the hallux. The incision was deepened down through subcutaneous tissue. Dissection was carried down to the first MPJ where an inverted L capsulotomy was made. The medial capsular flap was reflected and the head of the first metatarsal was delivered. A sagittal saw was used to resect the medial eminence. Attention was then directed to the first interspace where a lateral release was performed. PROCEDURE #2: First met cuneiform joint fusion. The incision as described in #1 was carried down to the periosteum and the first met cuneiform joint was delivered. A sagittal saw was used to resect the joint. A 5-hole plate was then placed over the fusion site with one screw crossing the fusion site with excellent rigid internal fixation. C-arm was used to verify good placement of the hardware as well as alignment of the first ray. The wound was flushed. A 2-0 Vicryl was then used to repair the joint capsule as well as close the deep tissue, 4-0 Rapide was used to close the subcutaneous tissue and 4-0 Rapide was used to close the skin in a subcuticular technique followed by Dayanara. OPERATIVE REPORT [id number] LOREN HOGUE PROCEDURE #3: Amor osteotomy, left third metatarsal. A 15-blade was used to create a curvilinear incision over dorsal aspect of the third metatarsal up on top of the third digit at the PIPJ. The incision was deepened down through subcutaneous tissue to the extensor longus tendon, which was transected in a Z fashion and moved out of the way. A linear capsulotomy was made over the third MPJ and the head of the third metatarsal was delivered as McGlamry scoop elevator was used to reduce the dislocation of the third MPJ. At this time, a sagittal saw was used to create an osteotomy from dorsal distal to plantar proximal and the head of the third metatarsal was moved proximally and temporarily fixated with a K-wire. PROCEDURE #4: Plantar plate repair of left third MPJ. A second K-wire was placed in the middle of the proximal phalanx of third digit. Wire distractor was placed over the wires and the joint was distracted. There was noted to be absolute rupture of the entire plantar plate. The central aspect of the flexor tendons were visible in the bed of the MPJ indicating total rupture. At this time, a 15-blade was used to complete the medial and lateral tear of the rupture. Scorpion passer was used to pass FiberWire through the medial and lateral plantar plate. Two small drill holes were made in the base of the proximal phalanx and the FiberWire was passed up through the holes. At this time, we went ahead and finished the Amor osteotomy fixation by removing the wire distractor and the K-wires, placing the third metatarsal in a proper alignment and 2 popoff screws were used to fixate the osteotomy. The most proximal pop off screw did not have good purchase, so I removed it and used a K-wire to prevent rotation of the metatarsal head. Continuing the plantar plate repair, the digit was held in slight plantar flexion and surgeon knots were placed and the FiberWire was passed up to the proximal phalanx, noting excellent reduction of the dislocation and proper alignment of the third digit. PROCEDURE #5: PIPJ fusion, left second digit. Two elliptical incisions were made over the dorsal aspect of the PIPJ of the left second digit in a transverse fashion. The elliptical wedge was removed and extensor longus tendon was transected giving access to the PIPJ. A sagittal saw was used to resect both surfaces. Small drill hole was made and the hammer tube graft was placed in the proximal phalanx first and the capital fragment on top of the graft, noting excellent alignment of the PIPJ and rigidity. PROCEDURE #6: PIPJ fusion, left third digit. Utilizing the incision as described in #3, the sagittal saw was used to resect the head of the proximal phalanx and the base of middle phalanx. Small drill holes were made and the hammer tube graft was placed in the proximal phalanx first and the distal fragment was placed on top of the graft compressing it noting excellent alignment of the fusion site as well as rigidity. At this time, 2-0 Vicryl was used to close the third MPJ followed by repair of the extensor longus tendon with 4-0 Rapide followed by closure of the subcutaneous tissue with 4-0 Rapide and the skin was then closed with 4-0 Rapide in a subcuticular technique over the third metatarsal and third digit. At this time, the wound over the second digit was also closed with 4-0 Rapide in a simple interrupted technique. PROCEDURE #7: Flexor tenotomy, left fourth digit. A 15 blade was used to create a small stab incision in the base of the fourth digit plantarly. The flexor tendon was accessed and then transected noting excellent reduction of the hammertoe. This wound was closed with 3-0 Vicryl in a simple interrupted technique followed by Dermabond. Dermabond was placed on all wounds followed by Rocael, 4 x 4 and Conform and application of a modified Uriostegui compression OPERATIVE REPORT [id number] LIVELY,LOREN dressing. Tourniquet was deflated. POSTOPERATIVE DETAILS: The patient tolerated the procedure well and left the OR with vital signs stable and vascular status at preoperative levels. The patient was transported to recovery per anesthesia in stable condition. TRANSINT:[id number] Voice Confirmation ID: [id number] DOCUMENT ID: [id number] GINGER JORGE DPM CC: [id number] DICTATION DATE: 05/09/19 1151 DEGREE CLERK: 05/09/19 1317 [facility] [address] [id number]
[~2019-05-09 06:10] MED LIST changes: -KEFLEX750 MG PO
[2019-05-09] MEDS ORDERED: KEFLEX750 MG PO (07:30)
[2019-05-09 07:42] VITALS: BP 140/72; Ht 182.9 cm; Wt 72.6 kg
[2019-05-09] MEDS ORDERED: PERCOCET 5-3251 TAB PO (14:27)
--- NOTE | 2019-05-09 15:34 | NUR ---
1500 PT'S RIDE HERE RELEASED IN WC WITH ESCORT.
== END 2019-05-09 15:00 | disposition home or self-care (01) ==
LOC: D.OPS 06:10 → D.PAN 08:15 → D.OPS 08:15
PROVIDERS: Anesthesiology; ATTEND Podiatrist
DX: M20.12 Hallux valgus (acquired), left foot (principal); M25.375 Other instability, left foot; S93.622A Sprain of tarsometatarsal ligament of left foot, initial encounter; X58.XXXA Exposure to other specified factors, initial encounter

== ENCOUNTER → 2019-06-20 08:56 | Outpatient (CLI) | payer OTHER ==
[2019-05-09 07:42] VITALS: BMI 21.7
[~2019-06-20 08:56] MED LIST changes: +KEFLEX750 MG PO
--- NOTE | 2019-06-26 11:09 | EC ---
PATIENT:LOREN HOGUE DATE OF SERVICE: 06/20/19 SEX: M MEDICAL RECORD: [id number] DATE OF : 64 [facility] AGE OF PATIENT: 58 ADMISSION DATE: 06/20/19 REFERRING PHYSICIAN: INTERPRETING PHYSICIAN: DWIGHT OGLESBY MD ECHOCARDIOGRAM REPORT ECHO CHARGES 4 ECHO COMPLETE Date: 06/20/19 CLINICAL DIAGNOSIS: DYSPNEA HX CAD/CABG ECHOCARDIOGRAPHIC MEASUREMENTS (adult normal given) AC root (d.<3.7cm) 3.6 cm LV Septum d (<1.2 cm> 1.3 cm Valve Excursion 1.5 cm LV Septum (systole) 1.5 cm Left Atria (s.<4.0cm> 5.0 cm LVPW d(<1.2cm) 1.5 cm RV (d.<2.3cm) 4.1 cm LVPW (sytole) 1.7 cm LV diastole(<5.6CM) 4.9 cm MV E-F(>70mm/sec) cm LV systole 3.3 cm LVOT Diameter 2.0 cm MV exc.(>10mm) 2.4 cm Est.ejection fraction (50-75%) % DOPPLER: LVIT cm/sec A 92.0 cm/sec E 85.0 cm/sec LA cm/sec RVSP 33 mmHg LVOT 90 cm/sec AOP1/2T m/s Asc. Ao 125 cm/sec RVOT 65 cm/sec RA cm/sec PA 93 cm/sec AV Gradient Peak 6.24 mmHg AV Mean 2.97 mmHg AV Area 2.6 cm MV Gradient Peak 4.02 mmHg MV Mean 1.51 mmHg MV Area cm COMMENTS: Sergeant At [employer]: Arturo VIDES Correctional Counselor: 1 Dr. Oglesby TAPE# PACS Pericardial Effusion N DATE OF SERVICE: 06/20/2019 ECHOCARDIOGRAM DATE OF SERVICE: 06/20/2019 FINDINGS: 1. Left ventricular chamber size is within normal limits. Left ventricular systolic function is normal. Overall ejection fraction is estimated at 55%. 2. Left atrium is enlarged at 5.0 cm. Right atrium and right ventricular ECHOCARDIOGRAM REPORT [id number] LOREN HOGUE chamber sizes are as well mildly dilated. 3. Valvular structures have normal structure and motion. 4. Doppler interrogation reveals [id number]-[id number] mitral regurgitation, mild tricuspid regurgitation, no other valvular insufficiency or stenosis. Pulmonary systolic pressure is estimated at 33 mmHg. 5. No evidence of pericardial effusion or left ventricular thrombus. TRANSINT:[id number] Voice Confirmation ID: [id number] DOCUMENT ID: [id number] DWIGHT OGLESBY MD at 1109 CC: [id number] DICTATION DATE: 06/21/19 1234 PEDICURIST: 06/21/19 1313 DEP CLI 06/20/19 [place] [id number]
== END | disposition home or self-care (01) ==
LOC: D.ECHO 08:56
PROVIDERS: ATTEND Internal Medicine Pulmonary Disease
DX: R06.00 Dyspnea, unspecified (principal)

== ENCOUNTER → 2019-07-30 08:25 | Outpatient (CLI) | payer OTHER ==
[2019-05-09 07:42] VITALS: BMI 21.7
--- NOTE | 2019-08-09 13:30 | ST ---
PATIENT:LOREN HOGUE MEDICAL RECORD: [id number] SEX: M LOCATION:[facility] ORDER #: ADMISSION DATE: 07/30/19 AGE OF PATIENT: 58 REFERRING PHYSICIAN: INTERPRETING PHYSICIAN: DWIGHT KAUFMAN MD DATE OF SERVICE: 07/30/2019 PROCEDURE: Nuclear stress test. INDICATIONS: Angina, coronary artery disease, hypertension, hyperlipidemia. He was exercised on standard Lexiscan protocol with 33 mCi of sestamibi injected at peak stress, 11 mCi used previously for rest images. FINDINGS: Gated SPECT reveals preserved ejection fraction at 60% with good wall motion and thickening and brightening throughout all segments. SPECT imaging: Cardiolite was used as myocardial perfusion agent. There is homogeneous uptake throughout all segments at rest and stress with no evidence of inducible ischemia or previous infarction. OVERALL IMPRESSION: 1. This is a normal nuclear stress test with no evidence of inducible ischemia or previous infarction. 2. Gated SPECT reveals a preserved ejection fraction at 60%. In this patient with ongoing symptomatology, the current scan does not suggest the presence of hemodynamically significant coronary artery disease. Evaluate noncardiac etiology of chest pain. TRANSINT:[id number] Voice Confirmation ID: [id number] DOCUMENT ID: [id number] DWIGHT KAUFMAN MD at 1330 CC: DOREEN KONG [id number] DICTATION DATE: 08/01/19 1211 BARBERING TEACHER: 08/02/19 0708 [facility] CLI 07/30/19 [id number] [place] [address]
== END | disposition home or self-care (01) ==
LOC: D.HCCARDIO 08:25
PROVIDERS: ATTEND Internal Medicine Interventional Cardiology
DX: I25.10 Atherosclerotic heart disease of native coronary artery without angina pectoris (principal)

== ENCOUNTER 2019-09-03 20:48 | Emergency (ER) | payer OTHER ==
[~2019-09-03] VITALS: Ht 182.9 cm; Wt 90.7 kg
[2019-09-03 20:50] VITALS: BP 137/85; Ht 182.9 cm; Wt 90.7 kg
[2019-09-03 21:45] LABS: BASOPHILS 0.4 % (0-2); EOSINOPHILS 6.5 % (0-7); HEMATOCRIT 38.5 % (42.0-54.0); HEMOGLOBIN 12.3 g/dL (13.5-17.5); IMMATURE GRANULOCYTES 0.2 % (0-5); LYMPHOCYTES 33.8 % (15-50); MCHC 31.9 g/dL (31.0-37.0); MCV 87.5 fL (80.0-100.0); MEAN PLATELET VOLUME 8.8 fL (7.4-10.4); MONOCYTES 9.2 % (2-11); NEUTROPHILS 49.9 % (40-80); RDW 14.4 % (11.5-14.5); WBC 5.7 10x3/uL (4.8-10.8)
[2019-09-03 21:51] LABS: APPEARANCE CLEAR (CLEAR); BILIRUBIN NEGATIVE (NEGATIVE); COLOR STRAW (YELLOW); GLUCOSE NEGATIVE (NEGATIVE); KETONE NEGATIVE (NEGATIVE); NITRITE NEGATIVE (NEGATIVE); PROTEIN NEGATIVE (NEGATIVE); UROBILINOGEN NORMAL (NORMAL)
[2019-09-03 22:06] LABS: CALC OSMOLALITY 279 mosm/kg (275-300); CALCIUM 8.3 mg/dL (8.5-10.1); CARBON DIOXIDE 25.8 mmol/L (21.0-32.0); CHLORIDE - SERUM 108 mmol/L (98-107); CREATININE - SERUM 0.9 mg/dL (0.6-1.3); GLUCOSE 97 mg/dL (74-106); POTASSIUM - SERUM 3.7 mmol/L (3.5-5.1); SODIUM 141 mmol/L (136-145); UREA NITROGEN 11 mg/dL (7-18); eGFR NON AFRICAN AMERICAN > 90 mL/min (90-120)
[2019-09-03 22:07] LABS: PLATELET COUNT 289 10x3/uL (130-400)
[2019-09-03 22:17] LABS: ALBUMIN 3.7 g/dL (3.4-5.0); ALKALINE PHOSPHATASE 99 U/L (46-116); ALT (SGPT) 53 U/L (10-68); BILIRUBIN - TOTAL 0.21 mg/dL (0.2-1.3); PROTEIN - SERUM 7.1 g/dL (6.4-8.2)
[2019-09-03 22:19] LABS: TROPONIN-I < 0.017 ng/mL (0.000-0.060)
== END 2019-09-03 22:27 | disposition home or self-care (01) ==
LOC: D.ER 20:48
PROVIDERS: Family Medicine
DX: S00.81XA Abrasion of other part of head, initial encounter (principal); W19.XXXA Unspecified fall, initial encounter; Y93.9 Activity, unspecified; I25.10 Atherosclerotic heart disease of native coronary artery without angina pectoris; E07.9 Disorder of thyroid, unspecified

== ENCOUNTER → 2019-09-24 13:40 | Outpatient (CLI) | payer OTHER ==
[2019-09-03 20:50] VITALS: BMI 21.7
== END | disposition home or self-care (01) ==
LOC: D.RT 13:40
PROVIDERS: ATTEND Internal Medicine Pulmonary Disease
DX: R06.00 Dyspnea, unspecified (principal)

== ENCOUNTER → 2019-11-14 08:26 | Outpatient (CLI) | payer OTHER ==
[2019-09-03 20:50] VITALS: BMI 21.7
== END | disposition home or self-care (01) ==
LOC: D.MRI 08:26
PROVIDERS: ATTEND Family Medicine
DX: S43.421A Sprain of right rotator cuff capsule, initial encounter (principal)

== ENCOUNTER → 2020-03-17 12:54 | Outpatient (CLI) | payer OTHER ==
[2019-11-29 10:39] VITALS: BMI 21.7
[~2020-03-17 12:54] MED LIST changes: +ANORO ELLIPTA1 EACH INH; +HYDROCODON-ACE1 EA10 PO
== END | disposition home or self-care (01) ==
LOC: D.LABREF 12:54
PROVIDERS: ATTEND Internal Medicine Pulmonary Disease
DX: Z11.59 Encounter for screening for other viral diseases (principal)

== ENCOUNTER 2020-03-19 06:40 | Day surgery (SDC) | payer OTHER ==
[2020-03-17 11:16] LABS: HEMATOCRIT 40.5 % (42.0-54.0); HEMOGLOBIN 12.5 g/dL (13.5-17.5); MCH 27.1 pg (26.0-34.0); MCHC 30.9 g/dL (31.0-37.0); MCV 87.7 fL (80.0-100.0); RBC 4.62 10x6/uL (4.20-6.10); RDW 14.9 % (11.5-14.5); WBC 4.4 10x3/uL (4.8-10.8)
[~2020-03-19] VITALS: Ht 182.9 cm; Wt 68.0 kg
--- NOTE | ~2020-03-19 | OP ---
PATIENT NAME: LOREN HOGUE MEDICAL RECORD: [id number] :64 LOCATION:[facility] ADMISSION DATE: SURGEON: GINGER JORGE DPM DATE OF OPERATION: 03/19/2020 PREOPERATIVE DIAGNOSIS: Painful retained hardware, left foot. POSTOPERATIVE DIAGNOSIS: Painful retained hardware, left foot. PROCEDURE: Removal of painful retained hardware, left foot. ANESTHESIA: Lidocaine and Marcaine plain around the surgical site, approximately 5 cc total as well as general anesthesia. PREOPERATIVE DETAILS: The patient was brought to the hospital today due to a painful retained pin in his left foot. It has been bothering him for the last 7 days. He presented to my office in severe pain due to the pain of the hardware and was brought to the hospital today for removal of the pin. DESCRIPTION OF PROCEDURE: The patient was taken to the OR and placed on the operating table in a supine position followed by induction of general anesthesia and infiltration of local anesthetic. At this point, the foot was examined and the pin was already working itself out of the skin. The area was cleaned with alcohol and utilizing hemostat and with some pressure, the pin became very proud, was able to be grasped with a hemostat and removed. Wound was wiped again with alcohol and a sterile dressing was applied as well as a postop shoe. POSTOPERATIVE DETAILS: The patient tolerated the procedure well and left the OR with vital signs stable and vascular status at preop levels. The patient was transported to recovery per anesthesia in stable condition. TRANSINT:[id number] Voice Confirmation ID: [id number] DOCUMENT ID: [id number] GINGER JORGE DPM CC: [id number] DICTATION DATE: 03/19/20925 PURCHASING OFFICER: 03/19/20 1504 [facility] [address] [id number]
[2020-03-19 07:37] VITALS: BP 111/67; Ht 182.9 cm; Wt 68.0 kg
--- NOTE | 2020-03-19 09:30 | NUR ---
PATIENT IN AND HOOKED UP TO ALL ANESTHESIA MONITORS, PUT TO SLEEP. TOURNIQUET PLACED ON LEFT THIGH. DR JORGE CAME IN THE OPERATING ROOM, PIN WAS POKING OUT OF LEFT FOOT, HE USED A HEMOSTAT TO REMOVE IT THEN INJECTED WITH 5ML 1% LIDOCAINE PLAIN AND 5ML .25% MARCAINE PLAIN AFTER REMOVAL. DRESSED WITH XEROFORM AND KERLIX. NO PREP WAS DONE.
== END 2020-03-19 10:40 | disposition home or self-care (01) ==
LOC: D.OPS 06:40
PROVIDERS: Anesthesiology; ATTEND Podiatrist
DX: T84.84XA Pain due to internal orthopedic prosthetic devices, implants and grafts, initial encounter (principal); J44.9 Chronic obstructive pulmonary disease, unspecified; R06.02 Shortness of breath

== ENCOUNTER 2020-04-30 05:00 | Day surgery (SDC) | payer OTHER ==
[2020-04-28 09:18] LABS: BASOPHILS 0.4 % (0-2); EOSINOPHILS 4.6 % (0-7); HEMATOCRIT 34.6 % (42.0-54.0); LYMPHOCYTES 26.8 % (15-50); MCH 27.7 pg (26.0-34.0); MCHC 31.8 g/dL (31.0-37.0); MCV 87.2 fL (80.0-100.0); MONOCYTES 12.2 % (2-11); PLATELET COUNT 248 10x3/uL (130-400); RBC 3.97 10x6/uL (4.20-6.10); RDW 15.5 % (11.5-14.5); WBC 5.2 10x3/uL (4.8-10.8)
[2020-04-28 09:27] LABS: APTT 28.2 SECONDS (22.8-39.4)
[2020-04-28 09:28] LABS: INR 1.16 (0.85-1.17); PROTIME 14.7 SECONDS (11.6-15.0)
[~2020-04-30] VITALS: Ht 182.9 cm; Wt 70.3 kg
--- NOTE | ~2020-04-30 | OP ---
PATIENT NAME: LOREN HOGUE MEDICAL RECORD: [id number] :64 LOCATION:D.OPS ADMISSION DATE: SURGEON: GINGER JORGE DPM DATE OF OPERATION: 04/30/2020 PREOPERATIVE DIAGNOSIS: Left third MPJ dislocation. POSTOPERATIVE DIAGNOSES: 1. Left third MPJ dislocation. 2. Left third extensor digitorum longus contracture. PROCEDURES: 1. Left third metatarsal head resection. 2. Left third extensor digitorum longus lengthening. ANESTHESIA: General with local infiltrate utilizing lidocaine and Marcaine plain, 20 cc total around the third ray of the left foot. HEMOSTASIS: Left ankle tourniquet at 250 mmHg. PREOPERATIVE DETAILS: The patient was taken to the OR, placed on the operating table in supine position. This was followed by induction of general anesthesia and infiltration of local anesthetic. The left extremity was then prepped and draped in the usual aseptic technique followed by exsanguination and inflation of tourniquet. PROCEDURE #1: Left third met head resection. A 15-blade was used to create a curvilinear incision on the dorsal aspect of the third metatarsal extending to the base of proximal phalanx of the third digit. Incision was deepened down through subcutaneous tissue to the joint capsule. Linear capsulotomy was performed and the third MPJ was delivered. There was noted to be significant contracture and dislocation. A sagittal saw was used to resect the metatarsal head, which included a screw that was placed in a previous surgery. Once the metatarsal head was resected, evaluation showed that the prominence of the plantar aspect of the foot was resolved. There was still some contracture of the dorsal structures including the extensor digitorum longus. PROCEDURE #2: Left third extensor digitorum longus lengthening. A 15-blade was used to create a Z-incision across the longitudinal axis of the extensor digitorum longus tendon dorsal to the third MPJ with the digit held in plantar flexion, proper length was achieved, the wound was flushed. A 2-0 Vicryl was then used to close the joint capsule, 4-0 Rapide was used to reapproximate the skin edges and 4-0 Rapide was used to close the skin in a subcuticular technique followed by Dermabond. Adaptic, 4 x 4 and Conform were used to dress the wound followed by Kerlix and Alcon wrap. Tourniquet was deflated. POSTOPERATIVE DETAILS: The patient tolerated the procedure well and left the OR with vital signs stable and vascular status at preoperative levels. The patient was transported to recovery per anesthesia in stable condition. TRANSINT:[id number] Voice Confirmation ID: [id number] DOCUMENT ID: [id number] OPERATIVE REPORT [id number] LOREN HOGUE MCKAY DPM CC: [id number] DICTATION DATE: 04/30/20 08 POLICE CADET: 04/30/20 [address] [place] [id number]
[2020-04-30 06:16] VITALS: BP 142/80; Ht 182.9 cm; Wt 70.3 kg
--- NOTE | 2020-04-30 08:55 | NUR ---
0830-RECD FROM PACU. ALERT. IV PATENT. RESP WITH EASE. LEFT FOOT ELEVATED WITH ICE. POST OP SHOE IN PLACE. PT STATES NUMB.
== END 2020-04-30 10:22 | disposition home or self-care (01) ==
LOC: D.OPS 05:00
PROVIDERS: Anesthesiology; ATTEND Podiatrist
DX: S63.263A Dislocation of metacarpophalangeal joint of left middle finger, initial encounter (principal); X58.XXXA Exposure to other specified factors, initial encounter; J44.9 Chronic obstructive pulmonary disease, unspecified; R06.02 Shortness of breath